=== PATIENT | female | born 1960 ===

== ENCOUNTER 2020-04-14 18:53 | Inpatient (IN) | payer MEDICARE, MEDICAID, SELFPAY ==
[2020-04-14] VITALS (9 sets, daily range): BP systolic 114–138; BP diastolic 61–87; PULSE 78–84; RESP 16–20; TEMP 38.1–38.8; O2SAT 92–98; BMI 35.4
--- NOTE | ~2020-04-14 | XR_ITS ---
EXAMINATION: XR chest 1V portable DATE: 04/14/2020 20:01 INDICATION: Dyspnea, cough, nausea and vomiting TECHNIQUE: frontal view of the chest was obtained. COMPARISON: None FINDINGS: Subtle patchy airspace opacities in the bilateral lower lung zones. No pleural effusion or pneumothor ax. The cardiomediastinal silhouette is normal. Dual lead pacemaker seen with leads projecting over t he expected locations of the right atrium and right ventricle. Old healed proximal left humeral fract ure deformity. IMPRESSION: 1. Mild opacities in the bilateral lower lung zones which could represent pneumonia, pulmonary edema and/or atelectasis. Reviewed, dictated and finalized at location A. T AID OFFICER IMPRESSION: 1. Mild opacities in the bilateral lower lung zones which could represent pneum onia, pulmonary edema and/or atelectasis.
--- NOTE | 2020-04-14 19:27 | ECG_ITS ---
Measurements Intervals [place] Rate: 77 P: 63 WA: 197 QRS: 32 QRSD: 93 T: 60 QT: 373 QTc: 424 Interpretive Statements SINUS RHYTHM BORDERLINE ST-T WAVE ABNORMALITY- DIFFUSE LEADS BASELINE ARTIFACT- II, III, AVR, AVL, AVF, V1 BORDERLINE ECG Electronically Signed On 04-15-2020 7:11:02 RESIDENTIAL PROPERTY MANAGER by Jared Noe D.O.
[2020-04-14 19:54] LABS: Base Excess ABG -1.4 mmol/L (0-2); HCO3 ABG 23.1 mmol/L (23-29); Oxygen Content ABG 17.3 %vol (16.0-22.0); Oxygen Saturation ABG 93.1 % (95-97); Oxyhemoglobin 92.5 % (94-100); PCO2 ABG 38.3 mmHg (35-45); PO2 ABG 61.7 mmHg (80-90); Total Hemoglobin 13.3 g/dL
[2020-04-14] MEDS: SODIUM CHLORIDE 0.9% IV 1,000 ML 999 ML IV CONT (19:58)
[2020-04-14 20:00] LABS: Basophils Absolute Auto 0.01 K/mm3 (0.00-0.10); Basophils Percent Auto 0.2 % (0.0-1.0); Eosinophils Absolute Auto 0.01 K/mm3 (0.02-0.50); Eosinophils Percent Auto 0.2 % (1.0-6.0); Hematocrit 37.8 % (35.0-49.0); Hemoglobin 12.5 g/dL (12.0-15.0); Immature Granulocyte Absolute 0.02 K/mm3 (0.00-0.00); Immature Granulocyte Percent A 0.4 % (0.0-0.0); Lymphocytes Absolute Auto 1.08 K/mm3 (1.10-4.50); Lymphocytes Percent Auto 24.1 % (18.0-42.0); Mean Corpuscular HGB Conc 33.1 g/dL (32.0-36.0); Mean Corpuscular Hemoglobin 31.6 pg (27.0-31.0); Mean Corpuscular Volume 95.7 fL (78.0-102.0); Mean Platelet Volume 8.8 fl (9.2-11.8); Monocytes Absolute Auto 0.64 K/mm3 (0.10-0.90); Monocytes Percent Auto 14.3 % (2.0-11.0); Neutrophils Absolute Auto 2.7 K/mm3 (1.7-7.2); Neutrophils Percent Auto 60.8 % (50.0-70.0); Platelet Count Result 253 K/mm3 (150-420); Red Blood Count 3.95 M/mm3 (4.20-5.40); Red Cell Distribution Width 12.8 % (11.6-14.4); White Blood Count 4.5 K/mm3 (4.8-10.8)
[2020-04-14 20:06] LABS: Device ROOM AIR; Modified Allen's Test Pass; Site Drawn LEFT RADIAL
[2020-04-14 20:09] LABS: Alanine Aminotransferase 25 U/L (14-59); Albumin Level 3.2 g/dL (3.4-5.0); Alkaline Phosphatase 82 U/L (46-116); Anion Gap 11 mmol/L (8-16); Aspartate Amino Transferase 19 U/L (15-37); Bilirubin,Total 0.2 mg/dL (0.00-1.00); Blood Urea Nitrogen 20 mg/dL (7-18); Calcium 8.7 mg/dL (8.5-10.1); Carbon Dioxide 26 mmol/L (21-32); Chloride 99 mmol/L (98-108); Estimated CRCL calculation 83 ml/min; Estimated Glomerular Filt Rate > 60; Glucose 220 mg/dL (70-99); Osmolality Calculated 291 mOsm/kg (285-295); Potassium 3.6 mmol/L (3.5-5.1); Sodium 136 mmol/L (136-145); Total Protein 7.2 g/dL (6.4-8.2)
[2020-04-14 20:16] LABS: BNP 10.5 pg/mL (0-100); D Dimer 0.47 mg/L (0.19-0.50); INR 0.9; Partial Thromboplastin Time 26.5 SEC (23.90-30.70); Prothrombin Time 10.4 Seconds (9.50-12.10)
[2020-04-14 20:20] LABS: Influenza Control Valid (Valid); SARS-CoV-2 Ag Positive (Negative)
[2020-04-14 20:23] LABS: Magnesium 1.8 mg/dL (1.8-2.4)
[2020-04-14] MEDS: ALBUTEROL SULFATE (*SP) INHALER 2 PUFF INHALATION (20:34)
--- NOTE | 2020-04-14 20:41 | ED.FEVER ---
HPI - Fever General Chief Complaint: Fever Stated Complaint: AMB Source: patient and family Mode of arrival: EMS Limitations: no limitations History of Present Illness HPI Narrative: This is a 59-year-old female that presents with some shortness of breath cough with nausea vomiting and diarrhea patient presents via EMS and with a temperature of 101?. The patient comes from [facility] and has a history of bipolar, posttraumatic stress disorder, history of hypertension, diabetes insulin dependent with history of asthma. Patient denies any chest pain although she is having some shortness of breath and sats around 92% on room air. Patient has been having some nausea vomiting cough is mildly productive. MD elicited complaint: fever Pertinent past history: diabetes Onset (ago): day(s) Context: sick contacts Relieving factors: nothing Associated symptoms: chills, headache, nasal congestion, cough, shortness of breath, abdominal pain, nausea, vomiting and diarrhea Related Data Home Medications Medication Instructions Recorded Confirmed Lactobacillus acidophilus 2 tablet PO BID 04/14/20 04/14/20 [Acidophilus] albuterol sulfate [Ventolin HFA] 1 - 2 puff INHALATION QID 04/14/20 04/14/20 azelastine 1 - 2 spray INTRANASAL BID 04/14/20 04/14/20 bisacodyl 10 mg ND DAILY PRN 04/14/20 04/14/20 budesonide-formoterol 1 puff INHALATION BID 04/14/20 04/14/20 calcium carbonate [Calcium 600] 600 mg PO DAILY 04/14/20 04/14/20 cetirizine 10 mg PO DAILY 04/14/20 04/14/20 cholecalciferol (vitamin D3) 25 mcg PO DAILY 04/14/20 04/14/20 [Vitamin D3] clonazepam 0.5 mg PO TID PRN 04/14/20 04/14/20 clopidogrel 75 mg PO DAILY 04/14/20 04/14/20 docusate calcium 100 mg PO BID 04/14/20 04/14/20 duloxetine 20 mg PO BID 04/14/20 04/14/20 duloxetine 60 mg PO HS 04/14/20 04/14/20 esomeprazole magnesium 40 mg PO DAILY 04/14/20 04/14/20 ezetimibe 10 mg PO DAILY 04/14/20 04/14/20 famotidine 40 mg PO DAILY 04/14/20 04/14/20 gabapentin 300 mg PO TID 04/14/20 04/14/20 hydroxyzine HCl 50 mg PO BID 04/14/20 04/14/20 insulin glargine [Lantus Solostar 25 unit SUBCUT HS 04/14/20 04/14/20 U-100 Insulin] insulin lispro [Humalog KwikPen 9 unit SUBCUT AC 04/14/20 04/14/20 Insulin] lidocaine [Aspercreme (lidocaine 1 patch TOPICAL DAILY PRN 04/14/20 04/14/20 HCl)] metoprolol tartrate 25 mg PO DAILY 04/14/20 04/14/20 mometasone 1 spray INTRANASAL DAILY 04/14/20 04/14/20 montelukast 10 mg PO DAILY 04/14/20 04/14/20 ondansetron HCl 4 mg PO TID PRN 04/14/20 04/14/20 polyethylene glycol 3350 [Miralax] 17 g PO DAILY 04/14/20 04/14/20 ropinirole 0.25 mg PO HS 04/14/20 04/14/20 sumatriptan succinate 50 mg PO ONCE PRN 04/14/20 04/14/20 tramadol 50 mg PO TID PRN 04/14/20 04/14/20 trazodone 150 mg PO HS PRN 04/14/20 04/14/20 vilazodone [Viibryd] 40 mg PO DAILY 04/14/20 04/14/20 Allergies Allergy/AdvReac Type Severity Reaction Status Date / Time doxycycline Allergy Intermediate Nausea Verified 04/14/20 20:48 clindamycin Allergy Mild Nausea Verified 04/14/20 20:48 amitriptyline Allergy Unknown Verified 04/14/20 20:48 pregabalin Allergy Unknown Verified 04/14/20 20:48 amoxicillin [From Augmentin] AdvReac Nausea Verified 04/14/20 20:48 clavulanic acid AdvReac Nausea Verified 04/14/20 20:48 [From Augmentin] metformin AdvReac Unknown Verified 04/14/20 20:48 Review of Systems Review of Systems: All systems reviewed & are unremarkable except as noted in HPI and below PMFSH Past Medical History Medical History Asthma Diabetes mellitus HTN (hypertension) Social History Social History Smoking status: Former smoker Smoking end date: 05/13/10 Alcohol intake: never Gender identity (if verbalized by the patient): Female Exam Const: General: no acute distress Orientation/consciousness: patient oriented x3 HENMT: Head: normal to inspection Eyes: Co
[2020-04-14] MEDS: ACETAMINOPHEN 500 MG TABLET 1000 MG PO (21:08)
--- NOTE | 2020-04-14 22:05 | ADMGEN ---
This patient, Alivia Lombardi, was admitted to 2nd Floor Room 210-2. Patient/family oriented to hospital policies and general routines including ID bracelet, bed and alarms, visiting hours, pain management, procedures, bathroom and other care routines, personal items, smoking policy, room service/diet, and visiting hours. Information on how to activate the Rapid Response Team has been discussed. Patient/Family are encouraged to report perceived risks to care and to ask questions if they do not understand what they are told or what they should do.
[2020-04-14] MEDS: SODIUM CHLORIDE 0.9% IV 1,000 ML 100 ML IV CONT (22:59)
[2020-04-14] MEDS: clonazePAM (*CRX) 0.5 MG TABLET PO (23:00)
[2020-04-14 23:54] LABS: Alanine Aminotransferase 23 U/L (14-59)
[2020-04-15] VITALS (10 sets, daily range): BP systolic 110–183; BP diastolic 67–91; PULSE 69–81; RESP 18–22; TEMP 36.5–38.1; O2SAT 92–97
[2020-04-15] MEDS: REMDESIVIR 100 MG/NS 250 ML 100 MG/250 ML BAG 250 MG IVPB ×2 (00:13→11:25)
[2020-04-15] MEDS: ACETAMINOPHEN 325 MG TABLET 650 MG PO (01:07)
[2020-04-15 02:12] LABS: Add Urine Microscopic? NO; Appearance Urine Clear (Clear); Bilirubin Urine Negative (Negative); Blood Urine Negative (Negative); Color Urine Yellow (Yellow); Glucose Urine UA Negative (Negative); Ketones Urine Negative (Negative); Leukocyte Esterase Ur Negative LEU/UL (Negative); Nitrate Urine Negative (Negative); Protein Urine Negative (Negative); Specific Grav Ur 1.015 (1.010-1.020); Urobilinogen Urine 0.2 mg/dL (0.2-1.0)
[2020-04-15 06:08] LABS: Hematocrit 34.5 % (35.0-49.0); Hemoglobin 11.3 g/dL (12.0-15.0); Mean Corpuscular HGB Conc 32.8 g/dL (32.0-36.0); Mean Corpuscular Hemoglobin 31.6 pg (27.0-31.0); Mean Corpuscular Volume 96.4 fL (78.0-102.0); Mean Platelet Volume 8.8 fl (9.2-11.8); Platelet Count Result 199 K/mm3 (150-420); Red Blood Count 3.58 M/mm3 (4.20-5.40); Red Cell Distribution Width 12.8 % (11.6-14.4)
[2020-04-15 06:27] LABS: Alanine Aminotransferase 23 U/L (14-59); Albumin Level 2.7 g/dL (3.4-5.0); Alkaline Phosphatase 70 U/L (46-116); Anion Gap 10 mmol/L (8-16); Aspartate Amino Transferase 15 U/L (15-37); Bilirubin,Total 0.2 mg/dL (0.00-1.00); Blood Urea Nitrogen 12 mg/dL (7-18); Calcium 7.7 mg/dL (8.5-10.1); Carbon Dioxide 25 mmol/L (21-32); Chloride 104 mmol/L (98-108); Estimated CRCL calculation 102 ml/min; Estimated Glomerular Filt Rate > 60; Glucose 204 mg/dL (70-99); Osmolality Calculated 293 mOsm/kg (285-295); Potassium 3.2 mmol/L (3.5-5.1); Sodium 139 mmol/L (136-145); Total Protein 6.1 g/dL (6.4-8.2)
[2020-04-15 06:49] LABS: Band Neutrophils Percent 0 % (0-6); Lymphocytes Absolute Manual 0.66 K/mm3 (1.1-4.5); Lymphocytes Percent Manual 22 % (18-44); Monocytes Percent Manual 10 % (3-9); Neutrophils Absolute Manual 2.04 K/mm3 (1.7-7.2); Neutrophils Percent Manual 68 % (46-73); Total Cells Counted 100
[2020-04-15 06:50] LABS: Platelet Estimate Adequate (Adequate)
[2020-04-15 08:03] LABS: Glucose Point of Care 201 (65-105)
[2020-04-15] MEDS: SODIUM CHLORIDE 0.9% IV 1,000 ML 100 ML IV CONT ×2 (08:54→20:35)
[2020-04-15] MEDS: LIDOCAINE 5% PATCH 1 PATCH TRANSDERM (08:55)
[2020-04-15] MEDS: FLUTICASONE PROPIONATE 0.05% NA SPR 16 GM BTL (*BKC) 1 SPRAY NASAL ×2 (08:55→20:49)
[2020-04-15] MEDS: polyethylene glycoL 3350 17 GM POWD.PACK PO (08:56)
[2020-04-15] MEDS: SACCHAROMYCES BOULARDII 250 MG CAPSULE PO ×2 (08:56→17:05)
[2020-04-15] MEDS: DEXAMETHASONE SOD PHOS INJ 4 MG/ML VIAL 6 MG IV PUSH (08:56)
[2020-04-15] MEDS: KCL 20 MEQ/SW 100 ML 100 ML 50 MEQ IVPB (08:56)
[2020-04-15] MEDS: hydrOXYzine HCL 25 MG TABLET 50 MG PO ×2 (08:57→16:58)
[2020-04-15] MEDS: DOCUSATE SODIUM 100 MG CAPSULE PO ×2 (08:57→16:58)
[2020-04-15] MEDS: FAMOTIDINE 20 MG TABLET 40 MG PO (08:57)
[2020-04-15] MEDS: CHOLECALCIFEROL 1,000 UNITS TABLET 1000 UNITS PO (08:57)
[2020-04-15] MEDS: CLOPIDOGREL BISULFATE 75 MG TABLET PO (08:58)
[2020-04-15] MEDS: EZETIMIBE 10 MG TABLET PO (08:58)
[2020-04-15] MEDS: METOPROLOL TARTRATE 25 MG TABLET PO (08:58)
[2020-04-15] MEDS: CALCIUM CARBONATE (OSCAL) 500 MG TABLET PO (08:58)
[2020-04-15] MEDS: GABAPENTIN 300 MG CAPSULE PO ×3 (08:58→16:58)
[2020-04-15] MEDS: MONTELUKAST SODIUM 10 MG TABLET PO (08:58)
[2020-04-15] MEDS: traMADol HCL (*CRX) 50 MG TABLET PO ×2 (08:58→16:58)
[2020-04-15] MEDS: PANTOPRAZOLE 40 MG TABLET PO (08:59)
[2020-04-15] MEDS: DULoxetine HCL 20 MG CAPSULE.DR PO ×2 (08:59→16:58)
[2020-04-15] MEDS: BUDESONIDE/FORMOTEROL (*SP) 160-4.5 MCG 6 GM INH 1 PUFF INHALATION ×2 (08:59→17:04)
[2020-04-15] MEDS: LORATADINE 10 MG TABLET PO (08:59)
--- NOTE | 2020-04-15 09:04 | PM.IMHP ---
H&P: HPI History of Present Illness Date/Time: 04/15/20 09:04 Chief complaint: pneumonia covid 19 Narrative: Alivia Lombardi is a 59 year old female that presented to our ED with complaints shortness of breath, cough, nausea vomiting, and febrile. Patient has a past medical history of asthma, diabetes, hypertension, bipolar and PTSD. According to patient a couple days ago she developed diarrhea. She noted that yesterday she developed chills with more diarrhea, a cough, shortness of breath, nasal congestion and a fever. Patient notes that he previously resided at [facility] in [place] she was then transferred to [facility] and she is currently at [facility]. This assessment patient still complains of chills, nasal congestion with a cough with occasional diarrhea ,her shortness of breath and nausea and vomiting has resolved. The patient denies CP, palpitation, extremity numbness, lightheadedness, dizziness, and constipation.. Review of Systems Review of Systems: All systems reviewed & are unremarkable except as noted in HPI and below (10 point system review) [facility] Past Medical History Medical History Asthma Diabetes mellitus HTN (hypertension) Social History Social History Smoking status: Former smoker Smoking end date: 05/13/10 Alcohol intake: never Substance use: never Gender identity (if verbalized by the patient): Female Sexual Orientation (if Verbalized by the Patient): Straight or Heterosexual Spiritual care concerns: No Meds Home Medications and Allergies Home Medications Medication Instructions Recorded Confirmed Type Lactobacillus acidophilus 2 tablet PO BID 04/14/20 04/14/20 History [Acidophilus] albuterol sulfate [Ventolin HFA] 1 - 2 puff INHALATION QID 04/14/20 04/14/20 History azelastine 1 - 2 spray INTRANASAL BID 04/14/20 04/14/20 History bisacodyl 10 mg MN DAILY PRN 04/14/20 04/14/20 History budesonide-formoterol 1 puff INHALATION BID 04/14/20 04/14/20 History calcium carbonate [Calcium 600] 600 mg PO DAILY 04/14/20 04/14/20 History cetirizine 10 mg PO DAILY 04/14/20 04/14/20 History cholecalciferol (vitamin D3) 25 mcg PO DAILY 04/14/20 04/14/20 History [Vitamin D3] clonazepam 0.5 mg PO TID PRN 04/14/20 04/14/20 History clopidogrel 75 mg PO DAILY 04/14/20 04/14/20 History docusate calcium 100 mg PO BID 04/14/20 04/14/20 History duloxetine 20 mg PO BID 04/14/20 04/14/20 History duloxetine 60 mg PO HS 04/14/20 04/14/20 History esomeprazole magnesium 40 mg PO DAILY 04/14/20 04/14/20 History ezetimibe 10 mg PO DAILY 04/14/20 04/14/20 History famotidine 40 mg PO DAILY 04/14/20 04/14/20 History gabapentin 300 mg PO TID 04/14/20 04/14/20 History hydroxyzine HCl 50 mg PO BID 04/14/20 04/14/20 History insulin glargine [Lantus Solostar 25 unit SUBCUT HS 04/14/20 04/14/20 History U-100 Insulin] insulin lispro [Humalog KwikPen 9 unit SUBCUT AC 04/14/20 04/14/20 History Insulin] lidocaine [Aspercreme (lidocaine 1 patch TOPICAL DAILY PRN 04/14/20 04/14/20 History HCl)] metoprolol tartrate 25 mg PO DAILY 04/14/20 04/14/20 History mometasone 1 spray INTRANASAL DAILY 04/14/20 04/14/20 History montelukast 10 mg PO DAILY 04/14/20 04/14/20 History ondansetron HCl 4 mg PO TID PRN 04/14/20 04/14/20 History polyethylene glycol 3350 [Miralax] 17 g PO DAILY 04/14/20 04/14/20 History ropinirole 0.25 mg PO HS 04/14/20 04/14/20 History sumatriptan succinate 50 mg PO ONCE PRN 04/14/20 04/14/20 History tramadol 50 mg PO TID PRN 04/14/20 04/14/20 History trazodone 150 mg PO HS PRN 04/14/20 04/14/20 History vilazodone [Viibryd] 40 mg PO DAILY 04/14/20 04/14/20 History Allergies Allergy/AdvReac Type Severity Reaction Status Date / Time doxycycline Allergy Intermediate Nausea Verified 04/14/20 20:48 clindamycin Allergy Mild Nausea Verified
[2020-04-15 09:52] LABS: CRP 7.9 mg/dL (0.0-0.9)
[2020-04-15 10:01] LABS: Lactic Acid Reflex 2.1 mmol/L (0.4-2.0)
[2020-04-15] MEDS: SUMAtriptan SUCCINATE 25 MG TABLET 50 MG PO (11:27)
[2020-04-15 11:42] LABS: Glucose Point of Care 242 (65-105)
[2020-04-15 12:45] LABS: Reflex Lactic Acid Yes or No Add Lactic
[2020-04-15 13:21] LABS: Lactic Acid 0.8 mmol/L (0.4-2.0)
[2020-04-15 16:23] LABS: Glucose Point of Care 290 (65-105)
[2020-04-15] MEDS: rOPINIRole HCL 0.5 MG TABLET 0.25 MG PO (20:37)
[2020-04-15] MEDS: DULoxetine HCL 30 MG CAPSULE.DR 60 MG PO (20:38)
[2020-04-15] MEDS: INSULIN GLARGINE (*BKC) 100 UNITS/ML 25 UNITS SUB-Q (21:15)
[2020-04-15] MEDS: traZODone HCL 50 MG TABLET 150 MG PO (21:17)
[2020-04-15 21:23] LABS: Glucose Point of Care 263 (65-105)
--- NOTE | 2020-04-16 00:09 | PC.NURSE ---
2300 Pt. assisted c SBA to bathroom, pt. voided and back to bed. Pt. noted to have increased SOB when up walking and c/o feeling more SOB and some pain in her chest c deep resp. Pt. placed back on her O2 at 3L NC and SPO2 increased to 95%.
[2020-04-16] MEDS: traMADol HCL (*CRX) 50 MG TABLET PO ×3 (02:53→19:55)
--- NOTE | 2020-04-16 03:04 | PC.NURSE ---
Pt. calling for assistance to BR, pt. c/o feeling SOB p walking to BR and feeling dizzy at this time. VS checked and noted WNL. Pt. assisted back to bed and wanting something for pain and reports pain in her legs and has H/A. Pt. given Tramadol and lights turned out. Encouraged pt. to rest and get sleep.
[2020-04-16 03:07] VITALS: BP 137/68; PULSE 73; RESP 20; TEMP 36.2; O2SAT 95
[2020-04-16 05:49] LABS: Hematocrit 33.3 % (35.0-49.0); Hemoglobin 11.2 g/dL (12.0-15.0); Mean Corpuscular HGB Conc 33.6 g/dL (32.0-36.0); Mean Corpuscular Hemoglobin 31.4 pg (27.0-31.0); Mean Corpuscular Volume 93.3 fL (78.0-102.0); Mean Platelet Volume 8.8 fl (9.2-11.8); Platelet Count Result 209 K/mm3 (150-420); Red Blood Count 3.57 M/mm3 (4.20-5.40); Red Cell Distribution Width 12.2 % (11.6-14.4); White Blood Count 2.9 K/mm3 (4.8-10.8)
[2020-04-16 06:05] LABS: Alanine Aminotransferase 20 U/L (14-59); Albumin Level 2.7 g/dL (3.4-5.0); Alkaline Phosphatase 67 U/L (46-116); Anion Gap 9 mmol/L (8-16); Aspartate Amino Transferase 12 U/L (15-37); Bilirubin,Total 0.2 mg/dL (0.00-1.00); Blood Urea Nitrogen 8 mg/dL (7-18); Calcium 8.1 mg/dL (8.5-10.1); Carbon Dioxide 25 mmol/L (21-32); Chloride 106 mmol/L (98-108); Estimated CRCL calculation 123 ml/min; Estimated Glomerular Filt Rate > 60; Glucose 178 mg/dL (70-99); Osmolality Calculated 292 mOsm/kg (285-295); Potassium 3.4 mmol/L (3.5-5.1); Sodium 140 mmol/L (136-145); Total Protein 6.4 g/dL (6.4-8.2)
[2020-04-16] MEDS: SODIUM CHLORIDE 0.9% IV 1,000 ML 100 ML IV CONT ×2 (06:10→17:18)
[2020-04-16 08:00] VITALS: BP 154/62; PULSE 71; RESP 18; TEMP 36.6; O2SAT 96
--- NOTE | 2020-04-16 09:06 | P.PN_ITS ---
Progress Note: A&P Assessment and Plan (1) Community acquired pneumonia: Qualifiers: Laterality: unspecified laterality Qualified Code(s): J18.9 - Pneumonia, unspecified organism Code(s): J18.9 - Pneumonia, unspecified organism Status: Acute Assessment and Plan: * Chest x-ray indicate possible pneumonia * Continue azithromycin and Rocephin day 1 * Continue Tessalon Perles, guaifenesin, Flonase, Claritin * Nebulizers * Zofran for the nausea * Imodium for the diarrhea (2) COVID-19: Code(s): U07.1 - COVID-19 Status: Acute Assessment and Plan: * Tested + 04/14/2020 * Developed symptoms 04/14/2020 * Continue remdesivir and dexamethasone * 04/27/2020 quarantine complete (3) Asthma: Code(s): J45.909 - Unspecified asthma, uncomplicated Status: Acute Assessment and Plan: * Continue nebulizers and inhaler * Give supplementary oxygen as needed (4) HTN (hypertension): Code(s): I10 - Essential (primary) hypertension Status: Acute Assessment and Plan: * Blood pressures stable * Continue metoprolol 25 mg daily * Will monitor and adjust as needed * Vital signs as ordered (5) Diabetes mellitus: Code(s): E11.9 - Type 2 diabetes mellitus without complications Status: Acute Assessment and Plan: * Blood sugar stable * Will continue Lantus 25 units at bedtime with sliding scale, Accu-Cheks and hypoglycemic protocol (6) Bipolar 1 disorder: Code(s): F31.9 - Bipolar disorder, unspecified Status: Acute Assessment and Plan: * Continue home medication, Cymbalta, hydroxyzine, vilazodone (7) Nausea vomiting and diarrhea: Code(s): R11.2 - Nausea with vomiting, unspecified; R19.7 - Diarrhea, unspecified Status: Acute Assessment and Plan: * Resolved * Possibly secondary to pneumonia versus Covid * Continue Zofran and Imodium (8) Leukocytopenia: Code(s): D72.819 - Decreased white blood cell count, unspecified Status: Acute Assessment and Plan: * Possibly secondary to psychotropic medication versus viral infection * Will continue to monitor Review of Systems Review of Systems: All systems reviewed & are unremarkable except as noted in HPI and below (10 point system review) Exam Narrative: Exam Narrative: GENERAL: This is a well-nourished in no apparent distress. HEAD: normocephalic, atraumatic. EYES: PERRL. Sclera clear/white. Vision is grossly intact. EARS: External ears normal, auditory canals clear and without drainage, TMs normal without perforation. Hearing grossly intact. NOSE: External nose normal with no obvious nasal discharge, nares without redness, no rhinorrhea. THROAT: Mucous membranes moist, posterior pharynx clear. NECK: Neck supple, non-tender without lymphadenopathy, masses or thyromegaly. CARDIOVASCULAR: Regular rate and rhythm without murmurs, gallops, or rubs. RESPIRATORY: Lung sounds diminished GASTROINTESTINAL: Abdomen soft, non-tender, nondistended. Bowel sounds are active. No hepato-splenomegaly, or palpable masses. No guarding. SKIN: warm, intact with no suspicious lesions or rash, good texture and turgor. NEURO: awake, alert, and oriented to person, place and time. There were no obvious focal neurologic abnormalities. Steady gait EXTREMITIES: Normal range of motion. No edema. No calf tenderness. Negative Homans sign bilaterally. BACK: Nontender without deformity or crepitance. No flank tenderness. Objective Data Vital Signs Vital
--- NOTE | 2020-04-16 09:06 | WPDPN ---
Progress Note: A&P Assessment and Plan (1) Community acquired pneumonia: Qualifiers: Laterality: unspecified laterality Qualified Code(s): J18.9 - Pneumonia, unspecified organism Code(s): J18.9 - Pneumonia, unspecified organism Status: Acute Assessment and Plan: Chest x-ray indicate possible pneumonia Continue azithromycin and Rocephin day 1 Continue Tessalon Perles, guaifenesin, Flonase, Claritin Nebulizers Zofran for the nausea Imodium for the diarrhea (2) COVID-19: Code(s): U07.1 - COVID-19 Status: Acute Assessment and Plan: Tested + 04/14/2020 Developed symptoms 04/14/2020 Continue remdesivir and dexamethasone 04/27/2020 quarantine complete (3) Asthma: Code(s): J45.909 - Unspecified asthma, uncomplicated Status: Acute Assessment and Plan: Continue nebulizers and inhaler Give supplementary oxygen as needed (4) HTN (hypertension): Code(s): I10 - Essential (primary) hypertension Status: Acute Assessment and Plan: Blood pressures stable Continue metoprolol 25 mg daily Will monitor and adjust as needed Vital signs as ordered (5) Diabetes mellitus: Code(s): E11.9 - Type 2 diabetes mellitus without complications Status: Acute Assessment and Plan: Blood sugar stable Will continue Lantus 25 units at bedtime with sliding scale, Accu-Cheks and hypoglycemic protocol (6) Bipolar 1 disorder: Code(s): F31.9 - Bipolar disorder, unspecified Status: Acute Assessment and Plan: Continue home medication, Cymbalta, hydroxyzine, vilazodone (7) Nausea vomiting and diarrhea: Code(s): R11.2 - Nausea with vomiting, unspecified; R19.7 - Diarrhea, unspecified Status: Acute Assessment and Plan: Resolved Possibly secondary to pneumonia versus Covid Continue Zofran and Imodium (8) Leukocytopenia: Code(s): D72.819 - Decreased white blood cell count, unspecified Status: Acute Assessment and Plan: Possibly secondary to psychotropic medication versus viral infection Will continue to monitor Review of Systems Review of Systems: All systems reviewed & are unremarkable except as noted in HPI and below (10 point system review) Exam Narrative: Exam Narrative: GENERAL: This is a well-nourished in no apparent distress. HEAD: normocephalic, atraumatic. EYES: PERRL. Sclera clear/white. Vision is grossly intact. EARS: External ears normal, auditory canals clear and without drainage, TMs normal without perforation. Hearing grossly intact. NOSE: External nose normal with no obvious nasal discharge, nares without redness, no rhinorrhea. THROAT: Mucous membranes moist, posterior pharynx clear. NECK: Neck supple, non-tender without lymphadenopathy, masses or thyromegaly. CARDIOVASCULAR: Regular rate and rhythm without murmurs, gallops, or rubs. RESPIRATORY: Lung sounds diminished GASTROINTESTINAL: Abdomen soft, non-tender, nondistended. Bowel sounds are active. No hepato-splenomegaly, or palpable masses. No guarding. SKIN: warm, intact with no suspicious lesions or rash, good texture and turgor. NEURO: awake, alert, and oriented to person, place and time. There were no obvious focal neurologic abnormalities. Steady gait EXTREMITIES: Normal range of motion. No edema. No calf tenderness. Negative Homans sign bilaterally. BACK: Nontender without deformity or crepitance. No flank tenderness. Objective Data Vital Signs Vital Signs: Vital Signs - 24 hr 04/15/20 15:36 04/15/20 20:52 04/15/20 22:58 Temperature 98.9 F 97.7 F Pulse Rate 81 76 72 Respiratory Rate 18 20 22 H Blood Pressure 183/91 H 157/67 H Pulse Oximetry 92 97 95 04/15/20 23:00 04/16/20 03:07 04/16/20 08:00 Temperature 97.1 F L 97.9 F Pulse Rate 73 71 Respiratory Rate 20 18 Blood Pressure 137/68 154/62 H Pulse Oximetry 95 95 96 Intake/Output Intake/Output: Intake & Output
[2020-04-16] MEDS: SACCHAROMYCES BOULARDII 250 MG CAPSULE PO ×2 (09:30→17:15)
[2020-04-16] MEDS: hydrOXYzine HCL 25 MG TABLET 50 MG PO ×2 (09:30→17:14)
[2020-04-16] MEDS: CALCIUM CARBONATE (OSCAL) 500 MG TABLET PO (09:31)
[2020-04-16] MEDS: LORATADINE 10 MG TABLET PO (09:31)
[2020-04-16] MEDS: DEXAMETHASONE SOD PHOS INJ 4 MG/ML VIAL 6 MG IV PUSH (09:31)
[2020-04-16] MEDS: DOCUSATE SODIUM 100 MG CAPSULE PO ×2 (09:31→17:14)
[2020-04-16] MEDS: DULoxetine HCL 20 MG CAPSULE.DR PO ×2 (09:31→17:14)
[2020-04-16] MEDS: FAMOTIDINE 20 MG TABLET 40 MG PO (09:31)
[2020-04-16] MEDS: CHOLECALCIFEROL 1,000 UNITS TABLET 1000 UNITS PO (09:31)
[2020-04-16 09:32] VITALS: PULSE 71
[2020-04-16] MEDS: MONTELUKAST SODIUM 10 MG TABLET PO (09:32)
[2020-04-16] MEDS: PANTOPRAZOLE 40 MG TABLET PO (09:32)
[2020-04-16] MEDS: METOPROLOL TARTRATE 25 MG TABLET PO (09:32)
[2020-04-16] MEDS: EZETIMIBE 10 MG TABLET PO (09:32)
[2020-04-16] MEDS: BUDESONIDE/FORMOTEROL (*SP) 160-4.5 MCG 6 GM INH 1 PUFF INHALATION ×2 (09:33→17:14)
[2020-04-16] MEDS: LIDOCAINE 5% PATCH 1 PATCH TRANSDERM (09:33)
[2020-04-16] MEDS: CLOPIDOGREL BISULFATE 75 MG TABLET PO (09:33)
[2020-04-16] MEDS: FLUTICASONE PROPIONATE 0.05% NA SPR 16 GM BTL (*BKC) 1 SPRAY NASAL ×2 (09:33→21:03)
[2020-04-16] MEDS: POTASSIUM CHLORIDE 20 MEQ PACKET (FOR LIQUID) 40 MEQ FEED TUBE (09:33)
[2020-04-16] MEDS: REMDESIVIR 100 MG/NS 250 ML 100 MG/250 ML BAG 250 MG IVPB (09:34)
[2020-04-16 09:56] LABS: Band Neutrophils Percent 36 % (0-6); Eosinophils Percent Manual 0 % (1-6); Lymphocytes Absolute Manual 0.34 K/mm3 (1.1-4.5); Lymphocytes Percent Manual 12 % (18-44); Monocytes Percent Manual 0 % (3-9); Neutrophils Absolute Manual 2.55 K/mm3 (1.7-7.2); Neutrophils Percent Manual 52 % (46-73); Total Cells Counted 100
[2020-04-16 09:57] LABS: Platelet Estimate Adequate (Adequate)
[2020-04-16] MEDS: GABAPENTIN 300 MG CAPSULE 900 MG PO ×3 (10:04→19:57)
[2020-04-16 15:00] VITALS: BP 165/81; PULSE 63; RESP 18; TEMP 36.3; O2SAT 95
[2020-04-16 16:24] LABS: Glucose Point of Care 232 (65-105)
[2020-04-16 16:31] LABS: Glucose Point of Care 292 (65-105)
--- NOTE | 2020-04-16 17:33 | PC.NURSE ---
Patient states that she takes evening gabapentin dose close to 1900/2000. Charge nurse notified of patient wanting times changed.
[2020-04-16] MEDS: clonazePAM (*CRX) 0.5 MG TABLET PO (19:55)
[2020-04-16 20:00] VITALS: PULSE 85; RESP 20; O2SAT 96
--- NOTE | 2020-04-16 20:09 | PC.NURSE ---
Upon assessment by this RN, entering pt. room, pt. reports feeling very anxious and having panic/anxiety attack due to her meds being off schedule. pt. given Tramadol and Clonazepam per request for c/o pain and anxiety. Pt. encouraged to relax and deep breath. Pt. sitting bedside and writing notes about her sxs and how she is feeling. Discussed relaxation techniques and ways to improve feelings. Pt. verbalized understanding. Call lizz in reach, VSS.
[2020-04-16] MEDS: DULoxetine HCL 30 MG CAPSULE.DR 60 MG PO (21:02)
[2020-04-16] MEDS: rOPINIRole HCL 0.5 MG TABLET 0.25 MG PO (21:03)
[2020-04-16] MEDS: INSULIN GLARGINE (*BKC) 100 UNITS/ML 25 UNITS SUB-Q (21:10)
[2020-04-16] MEDS: traZODone HCL 50 MG TABLET 150 MG PO (21:34)
[2020-04-16 21:42] LABS: Glucose Point of Care 292 (65-105)
[2020-04-16 23:52] VITALS: BP 158/82; PULSE 73; RESP 18; TEMP 36.3; O2SAT 89
--- NOTE | 2020-04-16 23:53 | PC.NURSE ---
Patient sleeping when nurse entered room. Woke when nurse called her name. SR up x2. IV insertion site clean, dry, intact, no redness, drainage observed. IV fluids infusing without difficulty. Call light and belongings are within reach.
--- NOTE | 2020-04-17 01:51 | PC.NURSE ---
Patient up to commode with standby assist. Urinated 800 ml of clear stephanie urine. Heat in room turned up per patient request. Warm blanket applied. Side rails up x2. Call light and belongings in reach. IV fluids infusing without difficulty. IV insertion site without redness, swelling, drainage. IV dressing clean, dry, intact.
[2020-04-17] MEDS: SODIUM CHLORIDE 0.9% IV 1,000 ML 100 ML IV CONT (03:12)
[2020-04-17 03:21] VITALS: BP 149/80; PULSE 72; RESP 16; TEMP 36.6; O2SAT 93
[2020-04-17 05:59] LABS: Alanine Aminotransferase 23 U/L (14-59)
[2020-04-17 07:45] VITALS: BP 168/83; PULSE 82; RESP 18; TEMP 36.8; O2SAT 96
[2020-04-17 08:10] LABS: Glucose Point of Care 242 (65-105)
[2020-04-17] MEDS: hydrOXYzine HCL 25 MG TABLET 50 MG PO ×2 (09:20→16:55)
[2020-04-17] MEDS: MONTELUKAST SODIUM 10 MG TABLET PO (09:20)
[2020-04-17] MEDS: GABAPENTIN 300 MG CAPSULE 900 MG PO ×3 (09:20→20:06)
[2020-04-17 09:21] VITALS: PULSE 82
[2020-04-17] MEDS: CHOLECALCIFEROL 1,000 UNITS TABLET 1000 UNITS PO (09:21)
[2020-04-17] MEDS: LIDOCAINE 5% PATCH 1 PATCH TRANSDERM (09:21)
[2020-04-17] MEDS: EZETIMIBE 10 MG TABLET PO (09:21)
[2020-04-17] MEDS: LORATADINE 10 MG TABLET PO (09:21)
[2020-04-17] MEDS: PANTOPRAZOLE 40 MG TABLET PO (09:21)
[2020-04-17] MEDS: FAMOTIDINE 20 MG TABLET 40 MG PO (09:21)
[2020-04-17] MEDS: DOCUSATE SODIUM 100 MG CAPSULE PO ×2 (09:21→16:55)
[2020-04-17] MEDS: METOPROLOL TARTRATE 25 MG TABLET PO (09:21)
[2020-04-17] MEDS: DEXAMETHASONE SOD PHOS INJ 4 MG/ML VIAL 6 MG IV PUSH (09:21)
[2020-04-17] MEDS: polyethylene glycoL 3350 17 GM POWD.PACK PO (09:22)
[2020-04-17] MEDS: BUDESONIDE/FORMOTEROL (*SP) 160-4.5 MCG 6 GM INH 1 PUFF INHALATION ×2 (09:22→16:55)
[2020-04-17] MEDS: SACCHAROMYCES BOULARDII 250 MG CAPSULE PO ×2 (09:22→16:56)
[2020-04-17] MEDS: FLUTICASONE PROPIONATE 0.05% NA SPR 16 GM BTL (*BKC) 1 SPRAY NASAL ×2 (09:22→21:58)
[2020-04-17] MEDS: REMDESIVIR 100 MG/NS 250 ML 100 MG/250 ML BAG 250 MG IVPB (09:23)
[2020-04-17] MEDS: DULoxetine HCL 20 MG CAPSULE.DR PO ×2 (09:23→16:55)
[2020-04-17] MEDS: CALCIUM CARBONATE (OSCAL) 500 MG TABLET PO (09:23)
[2020-04-17] MEDS: CLOPIDOGREL BISULFATE 75 MG TABLET PO (09:23)
--- NOTE | 2020-04-17 10:38 | WPDPN ---
Progress Note: A&P Assessment and Plan (1) Community acquired pneumonia: Qualifiers: Laterality: unspecified laterality Qualified Code(s): J18.9 - Pneumonia, unspecified organism Code(s): J18.9 - Pneumonia, unspecified organism Status: Acute Assessment and Plan: Chest x-ray indicate possible pneumonia Continue azithromycin and Rocephin Continue Tessalon Perles, guaifenesin, Flonase, Claritin Nebulizers Zofran for the nausea Imodium for the diarrhea (2) COVID-19: Code(s): U07.1 - COVID-19 Status: Acute Assessment and Plan: Tested + 04/14/2020 Developed symptoms 04/14/2020 Continue remdesivir and dexamethasone 04/27/2020 quarantine complete (3) Asthma: Code(s): J45.909 - Unspecified asthma, uncomplicated Status: Acute Assessment and Plan: Continue nebulizers and inhaler Give supplementary oxygen as needed (4) HTN (hypertension): Code(s): I10 - Essential (primary) hypertension Status: Acute Assessment and Plan: Blood pressures stable Continue metoprolol 25 mg daily Will monitor and adjust as needed Vital signs as ordered (5) Diabetes mellitus: Code(s): E11.9 - Type 2 diabetes mellitus without complications Status: Acute Assessment and Plan: Blood sugar stable Will continue Lantus 25 units at bedtime with sliding scale, Accu-Cheks and hypoglycemic protocol (6) Bipolar 1 disorder: Code(s): F31.9 - Bipolar disorder, unspecified Status: Acute Assessment and Plan: Continue home medication, Cymbalta, hydroxyzine, vilazodone (7) Nausea vomiting and diarrhea: Code(s): R11.2 - Nausea with vomiting, unspecified; R19.7 - Diarrhea, unspecified Status: Acute Assessment and Plan: Resolved Possibly secondary to pneumonia versus Covid Continue Zofran and Imodium (8) Leukocytopenia: Code(s): D72.819 - Decreased white blood cell count, unspecified Status: Acute Assessment and Plan: Possibly secondary to psychotropic medication versus viral infection Will continue to monitor Review of Systems Review of Systems: All systems reviewed & are unremarkable except as noted in HPI and below (10 point system review) Exam Narrative: Exam Narrative: GENERAL: This is a well-nourished in no apparent distress. HEAD: normocephalic, atraumatic. EYES: PERRL. Sclera clear/white. Vision is grossly intact. EARS: External ears normal, auditory canals clear and without drainage, TMs normal without perforation. Hearing grossly intact. NOSE: External nose normal with no obvious nasal discharge, nares without redness, no rhinorrhea. THROAT: Mucous membranes moist, posterior pharynx clear. NECK: Neck supple, non-tender without lymphadenopathy, masses or thyromegaly. CARDIOVASCULAR: Regular rate and rhythm without murmurs, gallops, or rubs. RESPIRATORY: Lung sounds diminished GASTROINTESTINAL: Abdomen soft, non-tender, nondistended. Bowel sounds are active. No hepato-splenomegaly, or palpable masses. No guarding. SKIN: warm, intact with no suspicious lesions or rash, good texture and turgor. NEURO: awake, alert, and oriented to person, place and time. There were no obvious focal neurologic abnormalities. Steady gait EXTREMITIES: Normal range of motion. No edema. No calf tenderness. Negative Homans sign bilaterally. BACK: Nontender without deformity or crepitance. No flank tenderness. Objective Data Vital Signs Vital Signs: Vital Signs - 24 hr 04/16/20 15:00 04/16/20 20:00 04/16/20 23:52 Temperature 97.4 F L 97.4 F L Pulse Rate 63 85 73 Respiratory Rate 18 20 18 Blood Pressure 165/81 H 158/82 H Pulse Oximetry 95 96 89 L 04/17/20 03:21 04/17/20 07:45 04/17/20 09:21 Temperature 97.8 F 98.3 F Pulse Rate 72 82 82 Respiratory Rate 16 18 Blood Pressure 149/80 H 168/83 H Pulse Oximetry 93 96 Intake/Output Intake/Output: Intake & Output
[2020-04-17] MEDS: clonazePAM (*CRX) 0.5 MG TABLET 0.25 MG PO ×2 (11:04→20:08)
[2020-04-17 12:00] LABS: Glucose Point of Care 216 (65-105)
[2020-04-17] MEDS: traMADol HCL (*CRX) 50 MG TABLET PO ×2 (13:39→21:54)
[2020-04-17 15:30] VITALS: BP 180/76; PULSE 71; RESP 18; TEMP 37.2; O2SAT 94
[2020-04-17 16:47] LABS: Glucose Point of Care 302 (65-105)
[2020-04-17] MEDS: rOPINIRole HCL 0.5 MG TABLET 0.25 MG PO (21:53)
[2020-04-17] MEDS: DULoxetine HCL 30 MG CAPSULE.DR 60 MG PO (21:54)
[2020-04-17] MEDS: traZODone HCL 50 MG TABLET 150 MG PO (21:54)
[2020-04-17] MEDS: INSULIN GLARGINE (*BKC) 100 UNITS/ML 25 UNITS SUB-Q (22:00)
[2020-04-17 22:33] LABS: Glucose Point of Care 260 (65-105)
[2020-04-17 23:43] VITALS: BP 170/79; PULSE 71; RESP 18; TEMP 36.3; O2SAT 96
--- NOTE | 2020-04-17 23:45 | PC.NURSE ---
Patient employee relations consultant light requesting to go to bathroom. Amb with SBA, gait steady. Dribbled while walking, patient changed own pull up. Amb back to bed without difficulty. IV insertion site clean, dry, intact. No redness, swelling, drainage. SR up x2, call light and belongings within reach.
--- NOTE | 2020-04-18 02:02 | PC.NURSE ---
Patient resting quietly. Resp even. Able to turn and position self in bed. SR up x2. Call light and belongings within reach. Continues on Droplet Isolation for positive Covid.
[2020-04-18 05:30] LABS: Hematocrit 35.8 % (35.0-49.0); Mean Corpuscular HGB Conc 33.5 g/dL (32.0-36.0); Mean Corpuscular Hemoglobin 31.2 pg (27.0-31.0); Platelet Count Result 270 K/mm3 (150-420); Red Blood Count 3.85 M/mm3 (4.20-5.40); Red Cell Distribution Width 12.6 % (11.6-14.4); White Blood Count 4.8 K/mm3 (4.8-10.8)
[2020-04-18 05:51] LABS: Alanine Aminotransferase 31 U/L (14-59); Albumin Level 2.9 g/dL (3.4-5.0); Alkaline Phosphatase 69 U/L (46-116); Anion Gap 7 mmol/L (8-16); Aspartate Amino Transferase 16 U/L (15-37); Bilirubin,Total 0.2 mg/dL (0.00-1.00); Blood Urea Nitrogen 18 mg/dL (7-18); Calcium 8.9 mg/dL (8.5-10.1); Carbon Dioxide 29 mmol/L (21-32); Chloride 103 mmol/L (98-108); Estimated CRCL calculation 88 ml/min; Estimated Glomerular Filt Rate > 60; Glucose 257 mg/dL (70-99); Osmolality Calculated 298 mOsm/kg (285-295); Potassium 3.6 mmol/L (3.5-5.1); Sodium 139 mmol/L (136-145); Total Protein 6.6 g/dL (6.4-8.2)
[2020-04-18] MEDS: ACETAMINOPHEN 325 MG TABLET 650 MG PO (06:18)
[2020-04-18 08:00] VITALS: BP 162/91; PULSE 74; RESP 18; TEMP 36.4; O2SAT 94
[2020-04-18 08:05] LABS: Glucose Point of Care 158 (65-105)
[2020-04-18] MEDS: FLUTICASONE PROPIONATE 0.05% NA SPR 16 GM BTL (*BKC) 1 SPRAY NASAL ×2 (09:16→20:57)
[2020-04-18] MEDS: BUDESONIDE/FORMOTEROL (*SP) 160-4.5 MCG 6 GM INH 1 PUFF INHALATION ×2 (09:16→16:34)
[2020-04-18] MEDS: SACCHAROMYCES BOULARDII 250 MG CAPSULE PO ×2 (09:16→16:35)
[2020-04-18] MEDS: LIDOCAINE 5% PATCH 1 PATCH TRANSDERM (09:16)
[2020-04-18 09:17] VITALS: PULSE 74
[2020-04-18] MEDS: EZETIMIBE 10 MG TABLET PO (09:17)
[2020-04-18] MEDS: FAMOTIDINE 20 MG TABLET 40 MG PO (09:17)
[2020-04-18] MEDS: CALCIUM CARBONATE (OSCAL) 500 MG TABLET PO (09:17)
[2020-04-18] MEDS: LORATADINE 10 MG TABLET PO (09:17)
[2020-04-18] MEDS: CHOLECALCIFEROL 1,000 UNITS TABLET 1000 UNITS PO (09:17)
[2020-04-18] MEDS: DULoxetine HCL 20 MG CAPSULE.DR PO ×2 (09:17→16:35)
[2020-04-18] MEDS: DOCUSATE SODIUM 100 MG CAPSULE PO ×2 (09:17→16:35)
[2020-04-18] MEDS: PANTOPRAZOLE 40 MG TABLET PO (09:17)
[2020-04-18] MEDS: CLOPIDOGREL BISULFATE 75 MG TABLET PO (09:17)
[2020-04-18] MEDS: MONTELUKAST SODIUM 10 MG TABLET PO (09:17)
[2020-04-18] MEDS: METOPROLOL TARTRATE 25 MG TABLET PO (09:17)
[2020-04-18] MEDS: hydrOXYzine HCL 25 MG TABLET 50 MG PO ×2 (09:17→16:34)
[2020-04-18] MEDS: GABAPENTIN 300 MG CAPSULE 900 MG PO ×3 (09:19→20:40)
[2020-04-18] MEDS: DEXAMETHASONE SOD PHOS INJ 4 MG/ML VIAL 6 MG IV PUSH (09:19)
[2020-04-18] MEDS: REMDESIVIR 100 MG/NS 250 ML 100 MG/250 ML BAG 250 MG IVPB (09:20)
[2020-04-18] MEDS: polyethylene glycoL 3350 17 GM POWD.PACK PO (09:34)
[2020-04-18] MEDS: clonazePAM (*CRX) 0.5 MG TABLET 0.25 MG PO ×3 (09:34→20:26)
[2020-04-18] MEDS: ONDANSETRON INJ 4 MG/2 ML VIAL IV PUSH (12:09)
--- NOTE | 2020-04-18 13:38 | WPDPN ---
Progress Note: A&P Assessment and Plan (1) Community acquired pneumonia: Qualifiers: Laterality: unspecified laterality Qualified Code(s): J18.9 - Pneumonia, unspecified organism Code(s): J18.9 - Pneumonia, unspecified organism Status: Acute Assessment and Plan: Chest x-ray indicate possible pneumonia Continue azithromycin and Rocephin Continue Tessalon Perles, guaifenesin, Flonase, Claritin Nebulizers Zofran for the nausea Imodium for the diarrhea (2) COVID-19: Code(s): U07.1 - COVID-19 Status: Acute Assessment and Plan: Tested + 04/14/2020 Developed symptoms 04/14/2020 Continue remdesivir and dexamethasone 04/27/2020 quarantine complete (3) Asthma: Code(s): J45.909 - Unspecified asthma, uncomplicated Status: Acute Assessment and Plan: Continue nebulizers and inhaler Give supplementary oxygen as needed (4) HTN (hypertension): Code(s): I10 - Essential (primary) hypertension Status: Acute Assessment and Plan: Blood pressures stable Continue metoprolol 25 mg daily Will monitor and adjust as needed Vital signs as ordered (5) Diabetes mellitus: Code(s): E11.9 - Type 2 diabetes mellitus without complications Status: Acute Assessment and Plan: Blood sugar stable Will continue Lantus 25 units at bedtime with sliding scale, Accu-Cheks and hypoglycemic protocol (6) Bipolar 1 disorder: Code(s): F31.9 - Bipolar disorder, unspecified Status: Acute Assessment and Plan: Continue home medication, Cymbalta, hydroxyzine, vilazodone (7) Nausea vomiting and diarrhea: Code(s): R11.2 - Nausea with vomiting, unspecified; R19.7 - Diarrhea, unspecified Status: Acute Assessment and Plan: Resolved Possibly secondary to pneumonia versus Covid Continue Zofran and Imodium (8) Leukocytopenia: Code(s): D72.819 - Decreased white blood cell count, unspecified Status: Acute Assessment and Plan: Possibly secondary to psychotropic medication versus viral infection Will continue to monitor Review of Systems Review of Systems: All systems reviewed & are unremarkable except as noted in HPI and below (10 point system review) Exam Narrative: Exam Narrative: GENERAL: This is a well-nourished in no apparent distress. HEAD: normocephalic, atraumatic. EYES: PERRL. Sclera clear/white. Vision is grossly intact. EARS: External ears normal, auditory canals clear and without drainage, TMs normal without perforation. Hearing grossly intact. NOSE: External nose normal with no obvious nasal discharge, nares without redness, no rhinorrhea. THROAT: Mucous membranes moist, posterior pharynx clear. NECK: Neck supple, non-tender without lymphadenopathy, masses or thyromegaly. CARDIOVASCULAR: Regular rate and rhythm without murmurs, gallops, or rubs. RESPIRATORY: Lung sounds diminished GASTROINTESTINAL: Abdomen soft, non-tender, nondistended. Bowel sounds are active. No hepato-splenomegaly, or palpable masses. No guarding. SKIN: warm, intact with no suspicious lesions or rash, good texture and turgor. NEURO: awake, alert, and oriented to person, place and time. There were no obvious focal neurologic abnormalities. Steady gait EXTREMITIES: Normal range of motion. No edema. No calf tenderness. Negative Homans sign bilaterally. BACK: Nontender without deformity or crepitance. No flank tenderness. Objective Data Vital Signs Vital Signs: Vital Signs - 24 hr 04/17/20 15:30 04/17/20 23:43 04/18/20 08:00 Temperature 99 F 97.4 F L 97.6 F Pulse Rate 71 71 74 Respiratory Rate 18 18 18 Blood Pressure 180/76 H 170/79 H 162/91 H Pulse Oximetry 94 96 94 04/18/20 09:17 Temperature Pulse Rate 74 Respiratory Rate Blood Pressure Pulse Oximetry Intake/Output Intake/Output: Intake & Output 04/15/20 04/16/20 04/17/20 04/18/20 23:59 23:59 23:59 23:59 Intake Total 4020.
[2020-04-18 15:29] VITALS: BP 181/79; PULSE 68; RESP 18; TEMP 36.4; O2SAT 94
[2020-04-18 17:12] LABS: Glucose Point of Care 213 (65-105)
[2020-04-18 17:12] LABS: Glucose Point of Care 353 (65-105)
[2020-04-18] MEDS: DULoxetine HCL 30 MG CAPSULE.DR 60 MG PO (20:26)
[2020-04-18] MEDS: rOPINIRole HCL 0.5 MG TABLET 0.25 MG PO (20:27)
[2020-04-18] MEDS: traZODone HCL 50 MG TABLET 150 MG PO (20:36)
[2020-04-18] MEDS: traMADol HCL (*CRX) 50 MG TABLET PO (20:36)
[2020-04-18] MEDS: INSULIN GLARGINE (*BKC) 100 UNITS/ML 25 UNITS SUB-Q (20:55)
[2020-04-18 20:56] LABS: Glucose Point of Care 296 (65-105)
[2020-04-19] VITALS: BP 115/54; PULSE 18; RESP 18; TEMP 36.2; O2SAT 98
[2020-04-19 06:03] LABS: Hematocrit 38.9 % (35.0-49.0); Hemoglobin 13.1 g/dL (12.0-15.0); Mean Corpuscular HGB Conc 33.7 g/dL (32.0-36.0); Mean Corpuscular Hemoglobin 31.1 pg (27.0-31.0); Mean Corpuscular Volume 92.4 fL (78.0-102.0); Mean Platelet Volume 8.8 fl (9.2-11.8); Platelet Count Result 328 K/mm3 (150-420); Red Blood Count 4.21 M/mm3 (4.20-5.40); Red Cell Distribution Width 12.5 % (11.6-14.4); White Blood Count 6.4 K/mm3 (4.8-10.8)
[2020-04-19 06:25] LABS: Alanine Aminotransferase 44 U/L (14-59); Albumin Level 3.4 g/dL (3.4-5.0); Alkaline Phosphatase 76 U/L (46-116); Anion Gap 11 mmol/L (8-16); Aspartate Amino Transferase 13 U/L (15-37); Bilirubin,Total 0.2 mg/dL (0.00-1.00); Blood Urea Nitrogen 23 mg/dL (7-18); Calcium 9.3 mg/dL (8.5-10.1); Carbon Dioxide 26 mmol/L (21-32); Chloride 101 mmol/L (98-108); Estimated CRCL calculation 89 ml/min; Estimated Glomerular Filt Rate > 60; Glucose 207 mg/dL (70-99); Osmolality Calculated 295 mOsm/kg (285-295); Potassium 3.9 mmol/L (3.5-5.1); Sodium 138 mmol/L (136-145); Total Protein 7.5 g/dL (6.4-8.2)
[2020-04-19 08:00] VITALS: BP 138/74; PULSE 72; RESP 20; TEMP 36; O2SAT 94
[2020-04-19] MEDS: FLUTICASONE PROPIONATE 0.05% NA SPR 16 GM BTL (*BKC) 1 SPRAY NASAL ×2 (08:15→20:45)
[2020-04-19] MEDS: BUDESONIDE/FORMOTEROL (*SP) 160-4.5 MCG 6 GM INH 1 PUFF INHALATION ×2 (08:15→16:35)
[2020-04-19] MEDS: polyethylene glycoL 3350 17 GM POWD.PACK PO (08:15)
[2020-04-19 08:16] VITALS: PULSE 70
[2020-04-19] MEDS: hydrOXYzine HCL 25 MG TABLET 50 MG PO ×2 (08:16→16:34)
[2020-04-19] MEDS: FAMOTIDINE 20 MG TABLET 40 MG PO (08:16)
[2020-04-19] MEDS: SUMAtriptan SUCCINATE 25 MG TABLET 50 MG PO (08:16)
[2020-04-19] MEDS: METOPROLOL TARTRATE 25 MG TABLET PO (08:16)
[2020-04-19] MEDS: PANTOPRAZOLE 40 MG TABLET PO (08:16)
[2020-04-19] MEDS: CHOLECALCIFEROL 1,000 UNITS TABLET 1000 UNITS PO (08:16)
[2020-04-19] MEDS: SACCHAROMYCES BOULARDII 250 MG CAPSULE PO ×2 (08:16→16:35)
[2020-04-19] MEDS: CLOPIDOGREL BISULFATE 75 MG TABLET PO (08:17)
[2020-04-19] MEDS: CALCIUM CARBONATE (OSCAL) 500 MG TABLET PO (08:17)
[2020-04-19] MEDS: DOCUSATE SODIUM 100 MG CAPSULE PO ×2 (08:17→16:34)
[2020-04-19] MEDS: EZETIMIBE 10 MG TABLET PO (08:17)
[2020-04-19] MEDS: MONTELUKAST SODIUM 10 MG TABLET PO (08:17)
[2020-04-19] MEDS: LORATADINE 10 MG TABLET PO (08:17)
[2020-04-19] MEDS: DEXAMETHASONE SOD PHOS INJ 4 MG/ML VIAL 6 MG IV PUSH (08:17)
[2020-04-19] MEDS: DULoxetine HCL 20 MG CAPSULE.DR PO ×2 (08:17→16:34)
[2020-04-19] MEDS: LIDOCAINE 5% PATCH 1 PATCH TRANSDERM (08:18)
--- NOTE | 2020-04-19 08:42 | P.PNIM_ITS ---
Progress Note: A&P Assessment and Plan (1) Community acquired pneumonia: Qualifiers: Laterality: unspecified laterality Qualified Code(s): J18.9 - Pneumonia, unspecified organism Code(s): J18.9 - Pneumonia, unspecified organism Status: Acute Assessment and Plan: * Chest x-ray indicate possible pneumonia * Continue azithromycin and Rocephin * Continue Tessalon Perles, guaifenesin, Flonase, Claritin * Nebulizers * Zofran for the nausea * Imodium for the diarrhea (2) COVID-19: Code(s): U07.1 - COVID-19 Status: Acute Assessment and Plan: * Tested + 04/14/2020 * Developed symptoms 04/14/2020 * Continue remdesivir and dexamethasone * 04/27/2020 quarantine complete (3) Asthma: Code(s): J45.909 - Unspecified asthma, uncomplicated Status: Acute Assessment and Plan: * Continue nebulizers and inhaler * Give supplementary oxygen as needed (4) HTN (hypertension): Code(s): I10 - Essential (primary) hypertension Status: Acute Assessment and Plan: * Blood pressures stable * Continue metoprolol 25 mg daily * Will monitor and adjust as needed * Vital signs as ordered (5) Diabetes mellitus: Code(s): E11.9 - Type 2 diabetes mellitus without complications Status: Acute Assessment and Plan: * Blood sugar stable * Will continue Lantus 25 units at bedtime with sliding scale, Accu-Cheks and hypoglycemic protocol (6) Bipolar 1 disorder: Code(s): F31.9 - Bipolar disorder, unspecified Status: Acute Assessment and Plan: * Continue home medication, Cymbalta, hydroxyzine, vilazodone (7) Nausea vomiting and diarrhea: Code(s): R11.2 - Nausea with vomiting, unspecified; R19.7 - Diarrhea, unspecified Status: Acute Assessment and Plan: * Resolved * Possibly secondary to pneumonia versus Covid * Continue Zofran and Imodium (8) Leukocytopenia: Code(s): D72.819 - Decreased white blood cell count, unspecified Status: Acute Assessment and Plan: * Possibly secondary to psychotropic medication versus viral infection * Will continue to monitor Subjective Date/time seen: 04/19/20 08:42 Objective Data Vital Signs Vital Signs: Vital Signs - 24 hr 04/18/20 09:17 12/07/20 15:29 04/19/20 00:00 Temperature 97.5 F L 97.2 F L Pulse Rate 74 68 18 L Respiratory Rate 18 18 Blood Pressure 181/79 H 115/54 L Pulse Oximetry 94 98 04/19/20 08:00 04/19/20 08:16 Temperature 96.8 F L Pulse Rate 72 70 Respiratory Rate 20 Blood Pressure 138/74 Pulse Oximetry 94 Intake/Output Intake/Output: Intake & Output 04/16/20 04/17/20 04/18/20 04/19/20 23:59 23:59 23:59 23:59 Intake Total 4370 4080 1510 300 Output Total 800 1150 850 Balance 3570 2930 660 300 Meds/Results Medications: Active Medications Generic Name Dose Route Start Last Admin Trade Name Freq PRN Reason Stop Dose Admin Acetaminophen 650 mg 04/14/20 20:56 04/18/20 06:18 Acetaminophen 325 Mg Tablet PO 650 mg Q4H PRN Administration Mild Pain (1-3) or Fever Albuterol 1 - 2 puff 04/15/20 09:00 Albuterol Sulfate (*Sp) Inhaler INHALATION QID PRN Shortness
--- NOTE | 2020-04-19 08:42 | PM.IMPN ---
Progress Note: A&P Assessment and Plan (1) Community acquired pneumonia: Qualifiers: Laterality: unspecified laterality Qualified Code(s): J18.9 - Pneumonia, unspecified organism Code(s): J18.9 - Pneumonia, unspecified organism Status: Acute Assessment and Plan: Chest x-ray indicate possible pneumonia Continue azithromycin and Rocephin Continue Tessalon Perles, guaifenesin, Flonase, Claritin Nebulizers Zofran for the nausea Imodium for the diarrhea (2) COVID-19: Code(s): U07.1 - COVID-19 Status: Acute Assessment and Plan: Tested + 04/14/2020 Developed symptoms 04/14/2020 Continue remdesivir and dexamethasone 04/27/2020 quarantine complete (3) Asthma: Code(s): J45.909 - Unspecified asthma, uncomplicated Status: Acute Assessment and Plan: Continue nebulizers and inhaler Give supplementary oxygen as needed (4) HTN (hypertension): Code(s): I10 - Essential (primary) hypertension Status: Acute Assessment and Plan: Blood pressures stable Continue metoprolol 25 mg daily Will monitor and adjust as needed Vital signs as ordered (5) Diabetes mellitus: Code(s): E11.9 - Type 2 diabetes mellitus without complications Status: Acute Assessment and Plan: Blood sugar stable Will continue Lantus 25 units at bedtime with sliding scale, Accu-Cheks and hypoglycemic protocol (6) Bipolar 1 disorder: Code(s): F31.9 - Bipolar disorder, unspecified Status: Acute Assessment and Plan: Continue home medication, Cymbalta, hydroxyzine, vilazodone (7) Nausea vomiting and diarrhea: Code(s): R11.2 - Nausea with vomiting, unspecified; R19.7 - Diarrhea, unspecified Status: Acute Assessment and Plan: Resolved Possibly secondary to pneumonia versus Covid Continue Zofran and Imodium (8) Leukocytopenia: Code(s): D72.819 - Decreased white blood cell count, unspecified Status: Acute Assessment and Plan: Possibly secondary to psychotropic medication versus viral infection Will continue to monitor Subjective Date/time seen: 04/19/20 08:42 Objective Data Vital Signs Vital Signs: Vital Signs - 24 hr 04/18/20 09:17 04/18/20 15:29 04/19/20 00:00 Temperature 97.5 F L 97.2 F L Pulse Rate 74 68 18 L Respiratory Rate 18 18 Blood Pressure 181/79 H 115/54 L Pulse Oximetry 94 98 04/19/20 08:00 04/19/20 08:16 Temperature 96.8 F L Pulse Rate 72 70 Respiratory Rate 20 Blood Pressure 138/74 Pulse Oximetry 94 Intake/Output Intake/Output: Intake & Output 04/16/20 04/17/20 04/18/20 04/19/20 23:59 23:59 23:59 23:59 Intake Total 4370 4080 1510 300 Output Total 800 1150 850 Balance 3570 2930 660 300 Meds/Results Medications: Active Medications Generic Name Dose Route Start Last Admin Trade Name Freq PRN Reason Stop Dose Admin Acetaminophen 650 mg 04/14/20 20:56 04/18/20 06:18 Acetaminophen 325 Mg Tablet PO 650 mg Q4H PRN Administration Mild Pain (1-3) or Fever Albuterol 1 - 2 puff 04/15/20 09:00 Albuterol Sulfate (*Sp) Inhaler INHALATION QID PRN Shortness Of Breath Budesonide/Formoterol Fumarate 1 puff 04/15/20 09:00 04/19/20 08:15 Budesonide/Formoterol (*Sp) 160-4.5 Mcg 6 Gm Inh INHALATION 1 puff BID SANDRA Administration Calcium Carbonate 500 mg 04/15/20 09:00 04/19/20 08:17 Calcium Carbonate (Oscal) 500 Mg Tablet PO 500 mg QAM SANDRA Administration Clonazepam 0.25 mg 04/17/20 10:46 04/18/20 20:26 Clonazepam (*Crx) 0.5 Mg Tablet PO 0.25 mg TID PRN Administration Anxiety Clopidogrel Bisulfate 75 mg 04/15/20 09:00 04/19/20 08:17 Clopidogrel Bisulfate 75 Mg Tablet PO 75 mg DAILY SANDRA Administration Dexamethasone Sodium Phosphate 6 mg 04/15/20 09:00 04/19/20 08:17 Dexamethasone Sod Phos Inj 4 Mg/Ml Vial IV PUSH 04/24/20 09:01 6 mg DAILY SANDRA Adminis
[2020-04-19] MEDS: GABAPENTIN 300 MG CAPSULE 900 MG PO ×2 (09:02→20:43)
[2020-04-19] MEDS: clonazePAM (*CRX) 0.5 MG TABLET 0.25 MG PO ×2 (09:02→20:43)
[2020-04-19] MEDS: REMDESIVIR 100 MG/NS 250 ML 100 MG/250 ML BAG 250 MG IVPB (09:03)
[2020-04-19 09:25] LABS: Glucose Point of Care 164 (65-105)
--- NOTE | 2020-04-19 12:39 | P.PN_ITS ---
Progress Note: A&P Assessment and Plan (1) Community acquired pneumonia: Qualifiers: Laterality: unspecified laterality Qualified Code(s): J18.9 - Pneumonia, unspecified organism <Keegan IvanCHRIS lopez - Last Filed: 04/19/20 12:55> Code(s): J18.9 - Pneumonia, unspecified organism <Keegan IvanSHENA lopezC - Last Filed: 04/19/20 12:55> Status: Acute <Keegan White SHENA AbarcaC - Last Filed: 04/19/20 12:55> Assessment and Plan: * Chest x-ray indicate possible pneumonia * Continue azithromycin and Rocephin * Nebulizers * Zofran for the nausea * Imodium for the diarrhea 04/19/2020 patient is on azithromycin and Rocephin <Keegan PatelSHENA HernandezC - Last Filed: 04/19/20 12:55> (2) COVID-19: Code(s): U07.1 - COVID-19 <Keegan PatelCHRIS Hernandez - Last Filed: 04/19/20 12:55> Status: Acute <Keegan White SHENA AbarcaC - Last Filed: 04/19/20 12:55> Assessment and Plan: * Tested + 04/14/2020 * Developed symptoms 04/14/2020 * Continue remdesivir and dexamethasone * 04/27/2020 quarantine complete 04/19/2020 continue albuterol, Symbicort, Decadron, today is last dose of Remdesivir, supplemental oxygen as needed to maintain SpO2 92% or better, monitor for any deterioration <Keegan PatelCHRIS Hernandez - Last Filed: 04/19/20 12:55> (3) Asthma: Code(s): J45.909 - Unspecified asthma, uncomplicated <Keegan PatelSHENA HernandezC - Last Filed: 04/19/20 12:55> Status: Acute <Keegan PatelSHENA HernandezC - Last Filed: 04/19/20 12:55> Assessment and Plan: * Continue nebulizers and inhaler * Give supplementary oxygen as needed 04/19/2020 supplemental oxygen as needed, continue albuterol and Symbicort <Keegan AmandaAlbina Abarca APN-C - Last Filed: 04/19/20 12:55> (4) HTN (hypertension): Code(s): I10 - Essential (primary) hypertension <Keegan AbarcaELENA-C - Last Filed: 04/19/20 12:55> Status: Acute <Keegan AbarcaELENA-C - Last Filed: 04/19/20 12:55> Assessment and Plan: * Blood pressures stable * Continue metoprolol 25 mg daily * Will monitor and adjust as needed * Vital signs as ordered 04/19/2020 blood pressure was little elevated overnight now 130s over 70s, continue home medication, monitor vital signs <Keegan IvanELENA lopez-C - Last Filed: 04/19/20 12:55> (5) Diabetes mellitus: Code(s): E11.9 - Type 2 diabetes mellitus without complications <Keegan IvanELENA lopez-C - Last Filed: 04/19/20 12:55> Status: Acute <Keegan IvanELENA lopez-C - Last Filed: 04/19/20 12:55> Assessment and Plan: * Blood sugar stable * Will continue Lantus 25 units at bedtime with sliding scale, Accu-Cheks and hypoglycemic protocol 04/19/2020 glucose has been between 150 and 290, patient is taking Decadron, continue Accu-Cheks and hypoglycemic interventions as needed, no change to insulin at this time <Keegan IvanELENA lopez-C - Last Filed: 04/19/20 12:55> (6) Bipolar 1 disorder: Code(s): F31.9 - Bipolar disorder, unspecified <Keegan IvanELENA lopez-C - Last Filed: 04/19/20 12:55> Status: Acute <Keegan IvanELENA lopez-C - Last Filed: 04/19/20 12:55> Assessment and Plan: * Continue home medication, Cymbalta, hydroxyzine, vilazodone 04/19/2020 continue with home medications <Keegan IvanELENA lopez-C - Last Filed: 04/19/20 12:55> (7) Nausea vomiting and diarrhea: Code(s): R11.2 - Nausea with vomiting, unspecified; R19.7 - Diarrhea, unspecified <Keegan Abarca APN-Ben - Last Filed: 04/19/20 12:55> Status: Acute <Ri
--- NOTE | 2020-04-19 12:39 | WPDPN ---
Progress Note: A&P Assessment and Plan (1) Community acquired pneumonia: Qualifiers: Laterality: unspecified laterality Qualified Code(s): J18.9 - Pneumonia, unspecified organism <Keegan IvanSHENA lopezC - Last Filed: 04/19/20 12:55> Code(s): J18.9 - Pneumonia, unspecified organism <Keegan IvanELENA lopez-C - Last Filed: 04/19/20 12:55> Status: Acute <Keegan White ELENA Abarca-C - Last Filed: 04/19/20 12:55> Assessment and Plan: Chest x-ray indicate possible pneumonia Continue azithromycin and Rocephin Nebulizers Zofran for the nausea Imodium for the diarrhea 04/19/2020 patient is on azithromycin and Rocephin <Keegan PatelAlbina Abarca APN-C - Last Filed: 04/19/20 12:55> (2) COVID-19: Code(s): U07.1 - COVID-19 <Keegan PatelSHENA HernandezC - Last Filed: 04/19/20 12:55> Status: Acute <Keegan PatelAlbina Abarca APN-C - Last Filed: 04/19/20 12:55> Assessment and Plan: Tested + 04/14/2020 Developed symptoms 04/14/2020 Continue remdesivir and dexamethasone 04/27/2020 quarantine complete 04/19/2020 continue albuterol, Symbicort, Decadron, today is last dose of Remdesivir, supplemental oxygen as needed to maintain SpO2 92% or better, monitor for any deterioration <Keegan PatelSHENA HernandezC - Last Filed: 04/19/20 12:55> (3) Asthma: Code(s): J45.909 - Unspecified asthma, uncomplicated <Keegan AmandaAlbina Abarca APN-C - Last Filed: 04/19/20 12:55> Status: Acute <Keegan AmandaAlbina Abarca APN-C - Last Filed: 04/19/20 12:55> Assessment and Plan: Continue nebulizers and inhaler Give supplementary oxygen as needed 04/19/2020 supplemental oxygen as needed, continue albuterol and Symbicort <Keegan Abarca APN-C - Last Filed: 04/19/20 12:55> (4) HTN (hypertension): Code(s): I10 - Essential (primary) hypertension <Keegan PatelCHRIS Hernandez - Last Filed: 04/19/20 12:55> Status: Acute <Keegan White CHRIS Abarca - Last Filed: 04/19/20 12:55> Assessment and Plan: Blood pressures stable Continue metoprolol 25 mg daily Will monitor and adjust as needed Vital signs as ordered 04/19/2020 blood pressure was little elevated overnight now 130s over 70s, continue home medication, monitor vital signs <Keegan PatelCHRIS Hernandez - Last Filed: 04/19/20 12:55> (5) Diabetes mellitus: Code(s): E11.9 - Type 2 diabetes mellitus without complications <Keegan PatelCHRIS Hernandez - Last Filed: 04/19/20 12:55> Status: Acute <Keegan PatelCHRIS Hernandez - Last Filed: 04/19/20 12:55> Assessment and Plan: Blood sugar stable Will continue Lantus 25 units at bedtime with sliding scale, Accu-Cheks and hypoglycemic protocol 04/19/2020 glucose has been between 150 and 290, patient is taking Decadron, continue Accu-Cheks and hypoglycemic interventions as needed, no change to insulin at this time <Keegan PatelCHRIS Hernandez - Last Filed: 04/19/20 12:55> (6) Bipolar 1 disorder: Code(s): F31.9 - Bipolar disorder, unspecified <Keegan AmandaCHRIS Hernandez - Last Filed: 04/19/20 12:55> Status: Acute <Keegan PatelCHRIS Hernandez - Last Filed: 04/19/20 12:55> Assessment and Plan: Continue home medication, Cymbalta, hydroxyzine, vilazodone 04/19/2020 continue with home medications <Keegan AmandaCHRIS Hernandez - Last Filed: 04/19/20 12:55> (7) Nausea vomiting and diarrhea: Code(s): R11.2 - Nausea with vomiting, unspecified; R19.7 - Diarrhea, unspecified <CHRIS Crook - Last Filed: 04/19/20 12:55> Status: Acute <CHRIS Crook - Last Filed: 04/19/20 12:55> Assessment and Plan: Resolved Possibly secondary to pneumonia versus Covid Continue Zofran and Imodium 04/19/2020 continue with medications, patient had no complaints of nausea vomiting or diarrhea today <CHRIS Crook - Last Filed: 04/19/20 12:55> (8) Leukocytopenia: Code(s):
[2020-04-19] MEDS: traMADol HCL (*CRX) 50 MG TABLET PO (13:52)
[2020-04-19 15:42] VITALS: BP 187/123; PULSE 76; RESP 18; TEMP 36.7; O2SAT 94
--- NOTE | 2020-04-19 15:50 | PC.NURSE ---
pt is visibly upset and crying, thinks that she will have to live on the [address], expresses that she will not go back to [facility] as she does not feel safe there, attempted to calm pt down with verbal reassurance
[2020-04-19 16:47] LABS: Glucose Point of Care 381 (65-105)
[2020-04-19 19:18] VITALS: O2SAT 94
[2020-04-19] MEDS: rOPINIRole HCL 0.5 MG TABLET 0.25 MG PO (20:42)
[2020-04-19] MEDS: DULoxetine HCL 30 MG CAPSULE.DR 60 MG PO (20:43)
[2020-04-19] MEDS: traZODone HCL 50 MG TABLET 150 MG PO (20:44)
[2020-04-19] MEDS: INSULIN GLARGINE (*BKC) 100 UNITS/ML 25 UNITS SUB-Q (20:45)
[2020-04-19 21:00] LABS: Glucose Point of Care 343 (65-105)
[2020-04-20] VITALS: BP 140/75; PULSE 65; RESP 18; TEMP 36.3; O2SAT 95
--- NOTE | 2020-04-20 02:13 | PC.NURSE ---
Pt. sleeping, no distress noted.
[2020-04-20 05:58] LABS: Hematocrit 39.6 % (35.0-49.0); Hemoglobin 13.1 g/dL (12.0-15.0); Mean Corpuscular HGB Conc 33.1 g/dL (32.0-36.0); Mean Corpuscular Volume 93.6 fL (78.0-102.0); Mean Platelet Volume 8.9 fl (9.2-11.8); Platelet Count Result 333 K/mm3 (150-420); Red Blood Count 4.23 M/mm3 (4.20-5.40); Red Cell Distribution Width 12.5 % (11.6-14.4)
[2020-04-20 06:14] LABS: Anion Gap 10 mmol/L (8-16); Blood Urea Nitrogen 25 mg/dL (7-18); Calcium 9.4 mg/dL (8.5-10.1); Carbon Dioxide 29 mmol/L (21-32); Chloride 102 mmol/L (98-108); Estimated CRCL calculation 91 ml/min; Estimated Glomerular Filt Rate > 60; Glucose 224 mg/dL (70-99); Osmolality Calculated 303 mOsm/kg (285-295); Potassium 4.2 mmol/L (3.5-5.1); Sodium 141 mmol/L (136-145)
[2020-04-20 07:54] LABS: Glucose Point of Care 183 (65-105)
[2020-04-20] MEDS: GABAPENTIN 300 MG CAPSULE 900 MG PO ×3 (07:55→20:52)
[2020-04-20] MEDS: FAMOTIDINE 20 MG TABLET 40 MG PO (07:56)
[2020-04-20] MEDS: CHOLECALCIFEROL 1,000 UNITS TABLET 1000 UNITS PO (07:56)
[2020-04-20] MEDS: polyethylene glycoL 3350 17 GM POWD.PACK PO (07:56)
[2020-04-20] MEDS: LIDOCAINE 5% PATCH 1 PATCH TRANSDERM (07:56)
[2020-04-20] MEDS: FLUTICASONE PROPIONATE 0.05% NA SPR 16 GM BTL (*BKC) 1 SPRAY NASAL ×2 (07:57→20:52)
[2020-04-20] MEDS: BUDESONIDE/FORMOTEROL (*SP) 160-4.5 MCG 6 GM INH 1 PUFF INHALATION ×2 (07:57→16:41)
[2020-04-20 07:58] VITALS: PULSE 64
[2020-04-20] MEDS: CALCIUM CARBONATE (OSCAL) 500 MG TABLET PO (07:58)
[2020-04-20] MEDS: PANTOPRAZOLE 40 MG TABLET PO (07:58)
[2020-04-20] MEDS: hydrOXYzine HCL 25 MG TABLET 50 MG PO ×2 (07:58→16:42)
[2020-04-20] MEDS: METOPROLOL TARTRATE 25 MG TABLET PO (07:58)
[2020-04-20] MEDS: MONTELUKAST SODIUM 10 MG TABLET PO (07:58)
[2020-04-20] MEDS: CLOPIDOGREL BISULFATE 75 MG TABLET PO (07:59)
[2020-04-20] MEDS: DULoxetine HCL 20 MG CAPSULE.DR PO ×2 (07:59→16:42)
[2020-04-20] MEDS: LORATADINE 10 MG TABLET PO (07:59)
[2020-04-20] MEDS: SACCHAROMYCES BOULARDII 250 MG CAPSULE PO ×2 (07:59→16:42)
[2020-04-20 08:00] VITALS: BP 130/70; PULSE 64; RESP 18; TEMP 36.9; O2SAT 94
[2020-04-20] MEDS: EZETIMIBE 10 MG TABLET PO (08:10)
[2020-04-20] MEDS: DOCUSATE SODIUM 100 MG CAPSULE PO ×2 (08:10→16:42)
[2020-04-20] MEDS: clonazePAM (*CRX) 0.5 MG TABLET 0.25 MG PO ×2 (08:36→16:42)
[2020-04-20] MEDS: DEXAMETHASONE SOD PHOS INJ 4 MG/ML VIAL 6 MG IV PUSH (08:37)
[2020-04-20 11:12] LABS: Glucose Point of Care 299 (65-105)
--- NOTE | 2020-04-20 12:43 | P.PN_ITS ---
Progress Note: A&P Assessment and Plan (1) Community acquired pneumonia: Qualifiers: Laterality: unspecified laterality Qualified Code(s): J18.9 - Pneumonia, unspecified organism <CHRIS Crook - Last Filed: 04/20/20 13:19> Code(s): J18.9 - Pneumonia, unspecified organism <Keegan Abarca APN-C - Last Filed: 04/20/20 13:19> Status: Acute <Keegan Abarca APN-C - Last Filed: 04/20/20 13:19> Assessment and Plan: * Chest x-ray indicate possible pneumonia * Continue azithromycin and Rocephin * Nebulizers * Zofran for the nausea * Imodium for the diarrhea 04/19/2020 patient is on azithromycin and Rocephin 04/20/2020 Rocephin stopped around midnight, continue with Azithromycin. <SHENA CrookC - Last Filed: 04/20/20 13:19> (2) COVID-19: Code(s): U07.1 - COVID-19 <Keegan Abarca APN-C - Last Filed: 04/20/20 13:19> Status: Acute <Keegan Abarca APN-C - Last Filed: 04/20/20 13:19> Assessment and Plan: * Tested + 04/14/2020 * Developed symptoms 04/14/2020 * Continue remdesivir and dexamethasone * 04/27/2020 quarantine complete 04/19/2020 continue albuterol, Symbicort, Decadron, today is last dose of Remdesivir, supplemental oxygen as needed to maintain SpO2 92% or better, monitor for any deterioration 04/20/2020 isolation continuing to 04/24/2020, continue azithromycin last dose will be 04/20 continue with Decadron last dose will be 04/25 <Keegan Abarca APN-C - Last Filed: 04/20/20 13:19> (3) Asthma: Code(s): J45.909 - Unspecified asthma, uncomplicated <Keegan Abarca APN-C - Last Filed: 04/20/20 13:19> Status: Acute <Keegan Abarca APN-C - Last Filed: 04/20/20 13:19> Assessment and Plan: * Continue nebulizers and inhaler * Give supplementary oxygen as needed 04/19/2020 supplemental oxygen as needed, continue albuterol and Symbicort 04/20/2020 continue with current regimen <Keegan PatelCHRIS Hernandez - Last Filed: 04/20/20 13:19> (4) HTN (hypertension): Code(s): I10 - Essential (primary) hypertension <CHRIS Crook - Last Filed: 04/20/20 13:19> Status: Acute <Keegan AmandaCHRIS Hernandez - Last Filed: 04/20/20 13:19> Assessment and Plan: * Blood pressures stable * Continue metoprolol 25 mg daily * Will monitor and adjust as needed * Vital signs as ordered 04/19/2020 blood pressure was little elevated overnight now 130s over 70s, continue home medication, monitor vital signs 04/20/2020 blood pressure this morning 140/75, no changes at this time <CHRIS Crook - Last Filed: 04/20/20 13:19> (5) Diabetes mellitus: Code(s): E11.9 - Type 2 diabetes mellitus without complications <CHRIS Crook - Last Filed: 04/20/20 13:19> Status: Acute <Keegan AmandaCHRIS Hernandez - Last Filed: 04/20/20 13:19> Assessment and Plan: * Blood sugar stable * Will continue Lantus 25 units at bedtime with sliding scale, Accu-Cheks and hypoglycemic protocol 04/19/2020 glucose has been between 150 and 290, patient is taking Decadron, continue Accu-Cheks and hypoglycemic interventions as needed, no change to insulin at this time 04/20/2020 glucose in the 300s x2 yesterday evening during the day 160-180 <CHRIS Crook - Last Filed: 04/20/20 13:19> (6) Bipolar 1 disorder: Code(s): F31.9 - Bipolar disorder, unspecified <CHRIS Crook - Last Filed: 04/20/20 13:19> Status: Acute <CHRIS Crook - Last Filed: 12/09/20 13:19> Assessment and
--- NOTE | 2020-04-20 12:43 | WPDPN ---
Progress Note: A&P Assessment and Plan (1) Community acquired pneumonia: Qualifiers: Laterality: unspecified laterality Qualified Code(s): J18.9 - Pneumonia, unspecified organism <Keegan PatelAlbina Abarca APN-C - Last Filed: 04/20/20 13:19> Code(s): J18.9 - Pneumonia, unspecified organism <Keegan PatelAlbina Abarca APN-C - Last Filed: 04/20/20 13:19> Status: Acute <Keegan AmandaAlbina Abarca APN-C - Last Filed: 04/20/20 13:19> Assessment and Plan: Chest x-ray indicate possible pneumonia Continue azithromycin and Rocephin Nebulizers Zofran for the nausea Imodium for the diarrhea 04/19/2020 patient is on azithromycin and Rocephin 04/20/2020 Rocephin stopped around midnight, continue with Azithromycin. <Keegan Abarca APN-C - Last Filed: 04/20/20 13:19> (2) COVID-19: Code(s): U07.1 - COVID-19 <Keegan Christopher Abarca APN-C - Last Filed: 04/20/20 13:19> Status: Acute <Keegan AmandaAlbina Abarca APN-C - Last Filed: 04/20/20 13:19> Assessment and Plan: Tested + 04/14/2020 Developed symptoms 04/14/2020 Continue remdesivir and dexamethasone 04/27/2020 quarantine complete 04/19/2020 continue albuterol, Symbicort, Decadron, today is last dose of Remdesivir, supplemental oxygen as needed to maintain SpO2 92% or better, monitor for any deterioration 04/20/2020 isolation continuing to 04/24/2020, continue azithromycin last dose will be 04/20 continue with Decadron last dose will be 04/25 <Keegan Abarca APN-C - Last Filed: 04/20/20 13:19> (3) Asthma: Code(s): J45.909 - Unspecified asthma, uncomplicated <Keegan Abarca APN-C - Last Filed: 04/20/20 13:19> Status: Acute <Keegan Abarca APN-C - Last Filed: 04/20/20 13:19> Assessment and Plan: Continue nebulizers and inhaler Give supplementary oxygen as needed 04/19/2020 supplemental oxygen as needed, continue albuterol and Symbicort 04/20/2020 continue with current regimen <CHRIS Crook - Last Filed: 04/20/20 13:19> (4) HTN (hypertension): Code(s): I10 - Essential (primary) hypertension <CHRIS Crook - Last Filed: 04/20/20 13:19> Status: Acute <Keegan AmandaCHRIS Hernandez - Last Filed: 04/20/20 13:19> Assessment and Plan: Blood pressures stable Continue metoprolol 25 mg daily Will monitor and adjust as needed Vital signs as ordered 04/19/2020 blood pressure was little elevated overnight now 130s over 70s, continue home medication, monitor vital signs 04/20/2020 blood pressure this morning 140/75, no changes at this time <CHRIS Crook - Last Filed: 04/20/20 13:19> (5) Diabetes mellitus: Code(s): E11.9 - Type 2 diabetes mellitus without complications <CHRIS Crook - Last Filed: 04/20/20 13:19> Status: Acute <Keegan AmandaCHRIS Hernandez - Last Filed: 04/20/20 13:19> Assessment and Plan: Blood sugar stable Will continue Lantus 25 units at bedtime with sliding scale, Accu-Cheks and hypoglycemic protocol 04/19/2020 glucose has been between 150 and 290, patient is taking Decadron, continue Accu-Cheks and hypoglycemic interventions as needed, no change to insulin at this time 04/20/2020 glucose in the 300s x2 yesterday evening during the day 160-180 <CHRIS Crook - Last Filed: 04/20/20 13:19> (6) Bipolar 1 disorder: Code(s): F31.9 - Bipolar disorder, unspecified <CHRIS Crook - Last Filed: 04/20/20 13:19> Status: Acute <CHRIS Crook - Last Filed: 04/20/20 13:19> Assessment and Plan: Continue home medication, Cymbalta, hydroxyzine, vilazodone 04/19/2020 continue with home medications 04/20/2020 no changes at this time <Keegan Abarca APN-Ben - Last Filed: 04/20/20 13:19> (7) Nausea vomiting and diarrhea: Code(s): R11.2 - Nausea with vomiting, unspecified; R19.7 - Diarrhea, unspecified <Keegan Abarca APN
[2020-04-20 16:00] VITALS: BP 156/78; PULSE 74; RESP 20; TEMP 37.1; O2SAT 98
[2020-04-20 16:12] LABS: Glucose Point of Care 280 (65-105)
[2020-04-20 16:58] LABS: Glucose Point of Care 340 (65-105)
--- NOTE | 2020-04-20 19:45 | PC.NURSE ---
Patient requested a warm blanket and thermostat to be turned up. Warm blanket provided and thermostat adjusted.
--- NOTE | 2020-04-20 20:30 | PC.NURSE ---
Patient sitting up in bed on her tablet. No complaints at this time. Call light in reach.
[2020-04-20] MEDS: rOPINIRole HCL 0.5 MG TABLET 0.25 MG PO (20:52)
[2020-04-20] MEDS: DULoxetine HCL 30 MG CAPSULE.DR 60 MG PO (20:52)
[2020-04-20] MEDS: INSULIN GLARGINE (*BKC) 100 UNITS/ML 25 UNITS SUB-Q (20:54)
[2020-04-20 21:44] LABS: Glucose Point of Care 363 (65-105)
[2020-04-20 23:58] VITALS: BP 124/75; PULSE 69; RESP 20; TEMP 36.3; O2SAT 98
[2020-04-21] MEDS: traMADol HCL (*CRX) 50 MG TABLET PO ×3 (02:26→21:06)
[2020-04-21] MEDS: FAMOTIDINE 20 MG TABLET 40 MG PO (07:59)
[2020-04-21] MEDS: DOCUSATE SODIUM 100 MG CAPSULE PO ×2 (07:59→16:10)
[2020-04-21] MEDS: CLOPIDOGREL BISULFATE 75 MG TABLET PO (07:59)
[2020-04-21] MEDS: GABAPENTIN 300 MG CAPSULE 900 MG PO ×3 (07:59→20:50)
[2020-04-21] MEDS: CHOLECALCIFEROL 1,000 UNITS TABLET 1000 UNITS PO (07:59)
[2020-04-21] MEDS: CALCIUM CARBONATE (OSCAL) 500 MG TABLET PO (07:59)
[2020-04-21] MEDS: hydrOXYzine HCL 25 MG TABLET 50 MG PO ×2 (07:59→16:10)
[2020-04-21] MEDS: DULoxetine HCL 20 MG CAPSULE.DR PO ×2 (07:59→16:10)
[2020-04-21 08:00] VITALS: BP 154/79; PULSE 68; RESP 18; TEMP 36.6; O2SAT 96
[2020-04-21] MEDS: LORATADINE 10 MG TABLET PO (08:00)
[2020-04-21] MEDS: ENOXAPARIN 40 MG/0.4 ML SYRINGE SUB-Q (08:00)
[2020-04-21] MEDS: METOPROLOL TARTRATE 25 MG TABLET PO (08:00)
[2020-04-21] MEDS: LIDOCAINE 5% PATCH 1 PATCH TRANSDERM (08:00)
[2020-04-21] MEDS: SACCHAROMYCES BOULARDII 250 MG CAPSULE PO ×2 (08:00→16:10)
[2020-04-21] MEDS: polyethylene glycoL 3350 17 GM POWD.PACK PO (08:00)
[2020-04-21] MEDS: PANTOPRAZOLE 40 MG TABLET PO (08:01)
[2020-04-21] MEDS: MONTELUKAST SODIUM 10 MG TABLET PO (08:01)
[2020-04-21] MEDS: BUDESONIDE/FORMOTEROL (*SP) 160-4.5 MCG 6 GM INH 1 PUFF INHALATION ×2 (08:01→16:10)
[2020-04-21] MEDS: EZETIMIBE 10 MG TABLET PO (08:01)
[2020-04-21] MEDS: DEXAMETHASONE SOD PHOS INJ 4 MG/ML VIAL 6 MG IV PUSH (08:01)
[2020-04-21 08:34] LABS: Glucose Point of Care 127 (65-105)
--- NOTE | 2020-04-21 10:30 | PC.NURSE ---
Patient resting in bed. Reports no needs at this time. Call light within reach.
[2020-04-21] MEDS: clonazePAM (*CRX) 0.5 MG TABLET 0.25 MG PO ×3 (11:20→20:44)
[2020-04-21 11:31] LABS: Glucose Point of Care 320 (65-105)
--- NOTE | 2020-04-21 12:59 | WPDPN ---
Progress Note: A&P Assessment and Plan (1) Community acquired pneumonia: Qualifiers: Laterality: unspecified laterality Qualified Code(s): J18.9 - Pneumonia, unspecified organism Code(s): J18.9 - Pneumonia, unspecified organism Status: Acute Assessment and Plan: Chest x-ray indicate possible pneumonia Continue azithromycin and Rocephin Nebulizers Zofran for the nausea Imodium for the diarrhea 04/19/2020 patient is on azithromycin and Rocephin 04/20/2020 Rocephin stopped around midnight, continue with Azithromycin. 04/21/2020 continue with azithromycin, possible accepting facility for tomorrow (2) COVID-19: Code(s): U07.1 - COVID-19 Status: Acute Assessment and Plan: Tested + 04/14/2020 Developed symptoms 04/14/2020 Continue remdesivir and dexamethasone 04/27/2020 quarantine complete 04/19/2020 continue albuterol, Symbicort, Decadron, today is last dose of Remdesivir, supplemental oxygen as needed to maintain SpO2 92% or better, monitor for any deterioration 04/20/2020 isolation continuing to 04/24/2020, continue azithromycin last dose will be 04/20 continue with Decadron last dose will be 04/2504/21/2020 isolation and date 04/25/2020, continue with Decadron, patient remains on room air, no respiratory distress, talks in complete sentences, no increased work of breathing no shortness of breath (3) Asthma: Code(s): J45.909 - Unspecified asthma, uncomplicated Status: Acute Assessment and Plan: Continue nebulizers and inhaler Give supplementary oxygen as needed 04/19/2020 supplemental oxygen as needed, continue albuterol and Symbicort 04/20/2020 continue with current regimen 04/21/2020 no changes at this time (4) HTN (hypertension): Code(s): I10 - Essential (primary) hypertension Status: Acute Assessment and Plan: Blood pressures stable Continue metoprolol 25 mg daily Will monitor and adjust as needed Vital signs as ordered 04/19/2020 blood pressure was little elevated overnight now 130s over 70s, continue home medication, monitor vital signs 04/20/2020 blood pressure this morning 140/75, no changes at this time 04/21/2020 vital signs stable blood pressure stable heart rate stable 60s to 70s afebrile (5) Diabetes mellitus: Code(s): E11.9 - Type 2 diabetes mellitus without complications Status: Acute Assessment and Plan: Blood sugar stable Will continue Lantus 25 units at bedtime with sliding scale, Accu-Cheks and hypoglycemic protocol 04/19/2020 glucose has been between 150 and 290, patient is taking Decadron, continue Accu-Cheks and hypoglycemic interventions as needed, no change to insulin at this time 04/20/2020 glucose in the 300s x2 yesterday evening during the day 160-180 04/21/2020 instructed nursing staff to pass along to evening and night staff not to give additional snacks in order to control glucose better (6) Bipolar 1 disorder: Code(s): F31.9 - Bipolar disorder, unspecified Status: Acute Assessment and Plan: Continue home medication, Cymbalta, hydroxyzine, vilazodone 04/19/2020 continue with home medications 04/20/2020 no changes at this time 04/21/2020 no changes at this time with gross medication, possible placement tomorrow (7) Nausea vomiting and diarrhea: Code(s): R11.2 - Nausea with vomiting, unspecified; R19.7 - Diarrhea, unspecified Status: Acute Assessment and Plan: Resolved Possibly secondary to pneumonia versus Covid Continue Zofran and Imodium 04/19/2020 continue with medications, patient had no complaints of nausea vomiting or diarrhea today 04/20/2020 again today patient had no complaints of nausea vomiting or diarrhea 04/21/2020 no change from yesterday no N/V/D (8) Leukocytopenia: Code(s): D72.819 - Decreased white blood cell count, unspecified Status: Acute Assessment and Plan: Possibly secondary to psychotropic
[2020-04-21] MEDS: ONDANSETRON INJ 4 MG/2 ML VIAL IV PUSH (14:26)
--- NOTE | 2020-04-21 14:30 | PC.NURSE ---
Patient resting in bed with hob elevated. Denies any needs at this time. Call light at side.
[2020-04-21 16:25] VITALS: BP 135/74; PULSE 67; RESP 18; TEMP 36.2; O2SAT 96
--- NOTE | 2020-04-21 16:30 | PC.NURSE ---
Patient tearful, worried about placement in care home. This nurse spoke with/comforted patient. Patient calmed down. Denies any needs, just states she is worried about the future. This nurse reassured patient.
[2020-04-21 16:33] LABS: Glucose Point of Care 307 (65-105)
[2020-04-21] MEDS: DULoxetine HCL 30 MG CAPSULE.DR 60 MG PO (20:41)
[2020-04-21] MEDS: rOPINIRole HCL 0.5 MG TABLET 0.25 MG PO (20:42)
[2020-04-21] MEDS: traZODone HCL 50 MG TABLET 150 MG PO (20:43)
[2020-04-21] MEDS: FLUTICASONE PROPIONATE 0.05% NA SPR 16 GM BTL (*BKC) 1 SPRAY NASAL (20:50)
[2020-04-21] MEDS: INSULIN GLARGINE (*BKC) 100 UNITS/ML 25 UNITS SUB-Q (20:51)
[2020-04-21 21:09] LABS: Glucose Point of Care 336 (65-105)
--- NOTE | 2020-04-21 22:59 | PC.NURSE ---
notified that patients IV was pulled out. New orders received to D/C IV antibiotics and start P.O. meds. Leave IV out.
--- NOTE | 2020-04-21 23:15 | PC.NURSE ---
Patient IV site infiltrated. IV was out. patient stated it just slid out. Doctor notified. IV ABT's removed
[2020-04-21 23:51] VITALS: BP 130/70; PULSE 72; RESP 20; TEMP 36.6; O2SAT 96
[2020-04-22 05:58] LABS: Hematocrit 39.2 % (35.0-49.0); Hemoglobin 13.1 g/dL (12.0-15.0); Mean Corpuscular HGB Conc 33.4 g/dL (32.0-36.0); Mean Corpuscular Hemoglobin 31.6 pg (27.0-31.0); Mean Corpuscular Volume 94.5 fL (78.0-102.0); Mean Platelet Volume 8.7 fl (9.2-11.8); Platelet Count Result 350 K/mm3 (150-420); Red Blood Count 4.15 M/mm3 (4.20-5.40); Red Cell Distribution Width 12.7 % (11.6-14.4); White Blood Count 10.1 K/mm3 (4.8-10.8)
[2020-04-22 06:07] LABS: Anion Gap 11 mmol/L (8-16); Blood Urea Nitrogen 25 mg/dL (7-18); Calcium 9.1 mg/dL (8.5-10.1); Carbon Dioxide 25 mmol/L (21-32); Chloride 101 mmol/L (98-108); Estimated CRCL calculation 83 ml/min; Estimated Glomerular Filt Rate > 60; Glucose 190 mg/dL (70-99); Osmolality Calculated 293 mOsm/kg (285-295); Potassium 4.1 mmol/L (3.5-5.1); Sodium 137 mmol/L (136-145)
[2020-04-22] MEDS: clonazePAM (*CRX) 0.5 MG TABLET 0.25 MG PO ×3 (07:58→19:28)
[2020-04-22] MEDS: traMADol HCL (*CRX) 50 MG TABLET PO ×2 (07:58→21:39)
[2020-04-22] MEDS: DEXAMETHASONE 2 MG TABLET 6 MG PO (07:59)
[2020-04-22] MEDS: ENOXAPARIN 40 MG/0.4 ML SYRINGE SUB-Q (07:59)
[2020-04-22] MEDS: GABAPENTIN 300 MG CAPSULE 900 MG PO ×3 (07:59→19:28)
[2020-04-22] MEDS: LIDOCAINE 5% PATCH 1 PATCH TRANSDERM (07:59)
[2020-04-22] MEDS: polyethylene glycoL 3350 17 GM POWD.PACK PO (07:59)
[2020-04-22] MEDS: PANTOPRAZOLE 40 MG TABLET PO (08:00)
[2020-04-22] MEDS: LORATADINE 10 MG TABLET PO (08:00)
[2020-04-22] MEDS: SACCHAROMYCES BOULARDII 250 MG CAPSULE PO ×2 (08:00→17:02)
[2020-04-22] MEDS: hydrOXYzine HCL 25 MG TABLET 50 MG PO ×2 (08:00→17:02)
[2020-04-22] MEDS: CHOLECALCIFEROL 1,000 UNITS TABLET 1000 UNITS PO (08:00)
[2020-04-22 08:01] VITALS: PULSE 68
[2020-04-22] MEDS: CLOPIDOGREL BISULFATE 75 MG TABLET PO (08:01)
[2020-04-22] MEDS: MONTELUKAST SODIUM 10 MG TABLET PO (08:01)
[2020-04-22] MEDS: EZETIMIBE 10 MG TABLET PO (08:01)
[2020-04-22] MEDS: CALCIUM CARBONATE (OSCAL) 500 MG TABLET PO (08:01)
[2020-04-22] MEDS: FLUTICASONE PROPIONATE 0.05% NA SPR 16 GM BTL (*BKC) 1 SPRAY NASAL ×2 (08:01→21:40)
[2020-04-22] MEDS: DOCUSATE SODIUM 100 MG CAPSULE PO ×2 (08:01→17:02)
[2020-04-22] MEDS: FAMOTIDINE 20 MG TABLET 40 MG PO (08:01)
[2020-04-22] MEDS: DULoxetine HCL 20 MG CAPSULE.DR PO ×2 (08:01→17:02)
[2020-04-22] MEDS: METOPROLOL TARTRATE 25 MG TABLET PO (08:01)
[2020-04-22] MEDS: BUDESONIDE/FORMOTEROL (*SP) 160-4.5 MCG 6 GM INH 1 PUFF INHALATION ×2 (08:01→17:02)
[2020-04-22 08:20] VITALS: BP 142/78; PULSE 72; RESP 18; TEMP 36.3; O2SAT 94
--- NOTE | 2020-04-22 10:16 | P.PN_ITS ---
Progress Note: A&P Assessment and Plan (1) Community acquired pneumonia: Qualifiers: Laterality: unspecified laterality Qualified Code(s): J18.9 - Pneumonia, unspecified organism <Keegan PatelCHRIS Hernandez - Last Filed: 04/22/20 10:38> Code(s): J18.9 - Pneumonia, unspecified organism <Keegan PatelCHRIS Hernandez - Last Filed: 04/22/20 10:38> Status: Acute <Keegan White CHRIS Abarca - Last Filed: 04/22/20 10:38> Assessment and Plan: * Chest x-ray indicate possible pneumonia * Continue azithromycin and Rocephin * Nebulizers * Zofran for the nausea * Imodium for the diarrhea 04/19/2020 patient is on azithromycin and Rocephin 04/20/2020 Rocephin stopped around midnight, continue with Azithromycin. 04/21/2020 continue with azithromycin, possible accepting facility for tomorrow 04/22/2020 Pt IV Azithromycin was stopped since her IV infiltrated and is now on PO Levaquin <CHRIS Crook - Last Filed: 04/22/20 10:38> (2) COVID-19: Code(s): U07.1 - COVID-19 <Keegan AmandaCHRIS Hernandez - Last Filed: 04/22/20 10:38> Status: Acute <Keegan PatelCHRIS Hernandez - Last Filed: 04/22/20 10:38> Assessment and Plan: * Tested + 04/14/2020 * Developed symptoms 04/14/2020 * Continue remdesivir and dexamethasone * 04/27/2020 quarantine complete 04/19/2020 continue albuterol, Symbicort, Decadron, today is last dose of Remdesivir, supplemental oxygen as needed to maintain SpO2 92% or better, monitor for any deterioration 04/20/2020 isolation continuing to 04/24/2020, continue azithromycin last dose will be 04/20 continue with Decadron last dose will be 04/2504/21/2020 isolation and date 04/25/2020, continue with Decadron, patient remains on room air, no respiratory distress, talks in complete sentences, no increased work of breathing no shortness of breath 04/22/2020 Pt states her breathing is better today and that in general she feels better <Keegan AbarcaELENA-C - Last Filed: 04/22/20 10:38> (3) Asthma: Code(s): J45.909 - Unspecified asthma, uncomplicated <Keegan Abarca PROFESSOR OF ENGLISH-C - Last Filed: 04/22/20 10:38> Status: Acute <SHASTA CrookN-C - Last Filed: 04/22/20 10:38> Assessment and Plan: * Continue nebulizers and inhaler * Give supplementary oxygen as needed 04/19/2020 supplemental oxygen as needed, continue albuterol and Symbicort 04/20/2020 continue with current regimen 04/21/2020 no changes at this time 04/22/2020 continue without changes <SHASTA CrookN-C - Last Filed: 04/22/20 10:38> (4) HTN (hypertension): Code(s): I10 - Essential (primary) hypertension <Keegan Abarca PROFESSOR [employer] ENGLISH-C - Last Filed: 04/22/20 10:38> Status: Acute <Keegan Abarca APN-C - Last Filed: 04/22/20 10:38> Assessment and Plan: * Blood pressures stable * Continue metoprolol 25 mg daily * Will monitor and adjust as needed * Vital signs as ordered 04/19/2020 blood pressure was little elevated overnight now 130s over 70s, continue home medication, monitor vital signs 04/20/2020 blood pressure this morning 140/75, no changes at this time 04/21/2020 vital signs stable blood pressure stable heart rate stable 60s to 70s afebrile 04/22/2020 vital signs remain stable <Keegan Abarca PROFESSOR [employer] ENGL[employer]-C - Last Filed: 04/22/20 10:38> (5) Diabetes mellitus: Code(s): E11.9 - Type 2 diabetes mellitus without complications <Keegan Abarca PROFESSOR [employer] ENGL[employer]-C - Last Filed: 04/22/20 10:38> Status: Acute <Keegan Abarca PROFESSOR OF ENGL[employer]-C - Last Filed: 04/22/20 10:38> Assessment and Plan:
--- NOTE | 2020-04-22 10:16 | WPDPN ---
Progress Note: A&P Assessment and Plan (1) Community acquired pneumonia: Qualifiers: Laterality: unspecified laterality Qualified Code(s): J18.9 - Pneumonia, unspecified organism <Keegan PatelCHRIS Hernandez - Last Filed: 04/22/20 10:38> Code(s): J18.9 - Pneumonia, unspecified organism <Keegan PatelCHRIS Hernandez - Last Filed: 04/22/20 10:38> Status: Acute <Keegan PatelCHRIS Hernandez - Last Filed: 04/22/20 10:38> Assessment and Plan: Chest x-ray indicate possible pneumonia Continue azithromycin and Rocephin Nebulizers Zofran for the nausea Imodium for the diarrhea 04/19/2020 patient is on azithromycin and Rocephin 04/20/2020 Rocephin stopped around midnight, continue with Azithromycin. 04/21/2020 continue with azithromycin, possible accepting facility for tomorrow 04/22/2020 Pt IV Azithromycin was stopped since her IV infiltrated and is now on PO Levaquin <CHRIS Crook - Last Filed: 04/22/20 10:38> (2) COVID-19: Code(s): U07.1 - COVID-19 <CHRIS Crook - Last Filed: 04/22/20 10:38> Status: Acute <Keegan AmandaCHRIS Hernandez - Last Filed: 04/22/20 10:38> Assessment and Plan: Tested + 04/14/2020 Developed symptoms 04/14/2020 Continue remdesivir and dexamethasone 04/27/2020 quarantine complete 04/19/2020 continue albuterol, Symbicort, Decadron, today is last dose of Remdesivir, supplemental oxygen as needed to maintain SpO2 92% or better, monitor for any deterioration 04/20/2020 isolation continuing to 04/24/2020, continue azithromycin last dose will be 04/20 continue with Decadron last dose will be 04/2504/21/2020 isolation and date 04/25/2020, continue with Decadron, patient remains on room air, no respiratory distress, talks in complete sentences, no increased work of breathing no shortness of breath 04/22/2020 Pt states her breathing is better today and that in general she feels better <Keegan IvanCHRIS lopez - Last Filed: 04/22/20 10:38> (3) Asthma: Code(s): J45.909 - Unspecified asthma, uncomplicated <Keegan AbarcaCHRIS - Last Filed: 04/22/20 10:38> Status: Acute <Keegan AbarcaELENAEddBen - Last Filed: 04/22/20 10:38> Assessment and Plan: Continue nebulizers and inhaler Give supplementary oxygen as needed 04/19/2020 supplemental oxygen as needed, continue albuterol and Symbicort 04/20/2020 continue with current regimen 04/21/2020 no changes at this time 04/22/2020 continue without changes <Keegan IvanELENA lopezEddBen - Last Filed: 04/22/20 10:38> (4) HTN (hypertension): Code(s): I10 - Essential (primary) hypertension <Keegan IvanCHRIS lopez - Last Filed: 04/22/20 10:38> Status: Acute <Keegan AbarcaELENAEddBen - Last Filed: 04/22/20 10:38> Assessment and Plan: Blood pressures stable Continue metoprolol 25 mg daily Will monitor and adjust as needed Vital signs as ordered 04/19/2020 blood pressure was little elevated overnight now 130s over 70s, continue home medication, monitor vital signs 04/20/2020 blood pressure this morning 140/75, no changes at this time 04/21/2020 vital signs stable blood pressure stable heart rate stable 60s to 70s afebrile 04/22/2020 vital signs remain stable <Keegan IvanCHRIS lopez - Last Filed: 04/22/20 10:38> (5) Diabetes mellitus: Code(s): E11.9 - Type 2 diabetes mellitus without complications <Keegan IvanCHRIS lopez - Last Filed: 04/22/20 10:38> Status: Acute <Keegan IvanELENA lopezEddBen - Last Filed: 04/22/20 10:38> Assessment and Plan: Blood sugar stable Will continue Lantus 25 units at bedtime with sliding scale, Accu-Cheks and hypoglycemic protocol 04/19/2020 glucose has been between 150 and 290, patient is taking Decadron, continue Accu-Cheks and hypoglycemic interventions as needed, no change to insulin at this time 04/20/2020 glucose in the 300s x2 yesterday evening during the day
[2020-04-22 12:03] LABS: Glucose Point of Care 265 (65-105)
--- NOTE | 2020-04-22 16:09 | PCPTNOTE ---
pt refused treatment x 2 in pm due to pain and increased fatigue. JF 04/20/20
[2020-04-22 16:45] VITALS: BP 113/65; PULSE 60; RESP 18; TEMP 36.1; O2SAT 97
[2020-04-22 17:16] LABS: Glucose Point of Care 288 (65-105)
--- NOTE | 2020-04-22 20:04 | PM.EVENT ---
Event Note Event Note Event Note: I have examined the patient and reviewed the chart. I discussed the patient's care with Amanda Abarca and agree with his assessment plan.
[2020-04-22] MEDS: rOPINIRole HCL 0.5 MG TABLET 0.25 MG PO (21:37)
[2020-04-22] MEDS: traZODone HCL 50 MG TABLET 150 MG PO (21:37)
[2020-04-22] MEDS: DULoxetine HCL 30 MG CAPSULE.DR 60 MG PO (21:37)
[2020-04-22] MEDS: INSULIN GLARGINE (*BKC) 100 UNITS/ML 25 UNITS SUB-Q (21:40)
[2020-04-22 22:39] LABS: Glucose Point of Care 246 (65-105)
[2020-04-22 23:45] VITALS: BP 128/72; PULSE 72; RESP 18; TEMP 36.1; O2SAT 96
[2020-04-23 08:00] VITALS: BP 141/69; PULSE 74; RESP 18; TEMP 36.6; O2SAT 92
[2020-04-23 08:18] LABS: Glucose Point of Care 163 (65-105)
--- NOTE | 2020-04-23 08:23 | WPDPN ---
Progress Note: A&P Assessment and Plan (1) Community acquired pneumonia: Qualifiers: Laterality: unspecified laterality Qualified Code(s): J18.9 - Pneumonia, unspecified organism Code(s): J18.9 - Pneumonia, unspecified organism Status: Acute Assessment and Plan: 04/19/2020 patient is on azithromycin and Rocephin 04/20/2020 Rocephin stopped around midnight, continue with Azithromycin. 04/21/2020 continue with azithromycin, possible accepting facility for tomorrow 04/22/2020 Pt IV Azithromycin was stopped since her IV infiltrated and is now on PO Levaquin 04/23/2020 continue Levaquin until 04/25/2020 for her last dose (2) COVID-19: Code(s): U07.1 - COVID-19 Status: Acute Assessment and Plan: 04/19/2020 continue albuterol, Symbicort, Decadron, today is last dose of Remdesivir, supplemental oxygen as needed to maintain SpO2 92% or better, monitor for any deterioration 04/20/2020 isolation continuing to 04/24/2020, continue azithromycin last dose will be 04/20 continue with Decadron last dose will be 04/2504/21/2020 isolation end date 04/25/2020, continue with Decadron, patient remains on room air, no respiratory distress, talks in complete sentences, no increased work of breathing no shortness of breath 04/22/2020 Pt states her breathing is better today and that in general she feels better 04/23/2020 patient will be out of isolation 04/25/2020, continue with room air as patient does not have increased oxygen requirements, no cough, no chills no fevers, continues with no shortness of breath nor increased work of breathing with activity, continue Decadron last dose on 04/25/2020 (3) Asthma: Code(s): J45.909 - Unspecified asthma, uncomplicated Status: Acute Assessment and Plan: 04/19/2020 supplemental oxygen as needed, continue albuterol and Symbicort 04/20/2020 continue with current regimen 04/21/2020 no changes at this time 04/22/2020 continue without changes 04/23/2020 continue with current regimen no changes required (4) HTN (hypertension): Code(s): I10 - Essential (primary) hypertension Status: Acute Assessment and Plan: 04/19/2020 blood pressure was little elevated overnight now 130s over 70s, continue home medication, monitor vital signs 04/20/2020 blood pressure this morning 140/75, no changes at this time 04/21/2020 vital signs stable blood pressure stable heart rate stable 60s to 70s afebrile 04/22/2020 vital signs remain stable 04/23/2020 vital signs remained stable no changes needed (5) Diabetes mellitus: Code(s): E11.9 - Type 2 diabetes mellitus without complications Status: Acute Assessment and Plan: Blood sugar stable Will continue Lantus 25 units at bedtime with sliding scale, Accu-Cheks and hypoglycemic protocol 04/19/2020 glucose has been between 150 and 290, patient is taking Decadron, continue Accu-Cheks and hypoglycemic interventions as needed, no change to insulin at this time 04/20/2020 glucose in the 300s x2 yesterday evening during the day 160-180 04/21/2020 instructed nursing staff to pass along to evening and night staff not to give additional snacks in order to control glucose better 04/22/2020 Glucose is a bit elevated, taking Decadron, calls dietary throughout the day for extra snacks and drinks, discussed the need to reduce Caloric intake. 04/23/2020 continue to educate patient on proper diabetic diet (6) Bipolar 1 disorder: Code(s): F31.9 - Bipolar disorder, unspecified Status: Acute Assessment and Plan: Continue home medication, Cymbalta, hydroxyzine, vilazodone 04/19/2020 continue with home medications 04/20/2020 no changes at this time 04/21/2020 no changes at this time with medication, possible placement tomorrow 04/22/2020 no changes made to medications, placement was denied 04/23/2020 no changes needed at this time (7) Nausea vomiting and diarrhea: Code(s): R11.2 - Na
[2020-04-23] MEDS: LIDOCAINE 5% PATCH 1 PATCH TRANSDERM (09:37)
[2020-04-23] MEDS: BUDESONIDE/FORMOTEROL (*SP) 160-4.5 MCG 6 GM INH 1 PUFF INHALATION ×2 (09:37→16:28)
[2020-04-23] MEDS: FLUTICASONE PROPIONATE 0.05% NA SPR 16 GM BTL (*BKC) 1 SPRAY NASAL ×2 (09:37→21:24)
[2020-04-23] MEDS: SACCHAROMYCES BOULARDII 250 MG CAPSULE PO ×2 (09:38→16:34)
[2020-04-23] MEDS: hydrOXYzine HCL 25 MG TABLET 50 MG PO ×2 (09:38→16:27)
[2020-04-23] MEDS: polyethylene glycoL 3350 17 GM POWD.PACK PO (09:38)
[2020-04-23] MEDS: PANTOPRAZOLE 40 MG TABLET PO (09:38)
[2020-04-23] MEDS: FAMOTIDINE 20 MG TABLET 40 MG PO (09:38)
[2020-04-23] MEDS: ENOXAPARIN 40 MG/0.4 ML SYRINGE SUB-Q (09:38)
[2020-04-23] MEDS: MONTELUKAST SODIUM 10 MG TABLET PO (09:38)
[2020-04-23 09:39] VITALS: PULSE 74
[2020-04-23] MEDS: CLOPIDOGREL BISULFATE 75 MG TABLET PO (09:39)
[2020-04-23] MEDS: CHOLECALCIFEROL 1,000 UNITS TABLET 1000 UNITS PO (09:39)
[2020-04-23] MEDS: METOPROLOL TARTRATE 25 MG TABLET PO (09:39)
[2020-04-23] MEDS: DEXAMETHASONE 2 MG TABLET 6 MG PO (09:39)
[2020-04-23] MEDS: CALCIUM CARBONATE (OSCAL) 500 MG TABLET PO (09:39)
[2020-04-23] MEDS: EZETIMIBE 10 MG TABLET PO (09:40)
[2020-04-23] MEDS: LORATADINE 10 MG TABLET PO (09:40)
[2020-04-23] MEDS: DULoxetine HCL 20 MG CAPSULE.DR PO ×2 (09:40→16:28)
[2020-04-23] MEDS: DOCUSATE SODIUM 100 MG CAPSULE PO ×2 (09:40→16:28)
[2020-04-23] MEDS: GABAPENTIN 300 MG CAPSULE 900 MG PO ×3 (09:45→21:22)
[2020-04-23] MEDS: clonazePAM (*CRX) 0.5 MG TABLET 0.25 MG PO ×3 (09:52→21:24)
[2020-04-23 11:42] LABS: Glucose Point of Care 254 (65-105)
[2020-04-23 16:00] VITALS: BP 132/76; PULSE 62; RESP 18; TEMP 35.9; O2SAT 93
[2020-04-23 16:34] LABS: Glucose Point of Care 353 (65-105)
[2020-04-23] MEDS: rOPINIRole HCL 0.5 MG TABLET 0.25 MG PO (21:23)
[2020-04-23] MEDS: traMADol HCL (*CRX) 50 MG TABLET PO (21:23)
[2020-04-23] MEDS: traZODone HCL 50 MG TABLET 150 MG PO (21:24)
[2020-04-23] MEDS: DULoxetine HCL 30 MG CAPSULE.DR 60 MG PO (21:24)
[2020-04-23] MEDS: INSULIN GLARGINE (*BKC) 100 UNITS/ML 25 UNITS SUB-Q (21:26)
[2020-04-23 21:30] VITALS: BP 146/84; PULSE 65; RESP 18; TEMP 36.6; O2SAT 95
[2020-04-23 21:59] LABS: Glucose Point of Care 380 (65-105)
[2020-04-24] VITALS: BP 140/72; PULSE 78; RESP 18; TEMP 36; O2SAT 96
--- NOTE | 2020-04-24 01:03 | PC.NURSE ---
Up to void, no distress noted,
--- NOTE | 2020-04-24 02:34 | PC.NURSE ---
Resting quietly, no needs voiced
[2020-04-24 05:22] LABS: Hematocrit 40.7 % (35.0-49.0); Hemoglobin 13.4 g/dL (12.0-15.0); Mean Corpuscular HGB Conc 32.9 g/dL (32.0-36.0); Mean Corpuscular Volume 94.2 fL (78.0-102.0); Mean Platelet Volume 8.7 fl (9.2-11.8); Platelet Count Result 318 K/mm3 (150-420); Red Blood Count 4.32 M/mm3 (4.20-5.40); Red Cell Distribution Width 12.8 % (11.6-14.4); White Blood Count 10.4 K/mm3 (4.8-10.8)
[2020-04-24 05:34] LABS: Anion Gap 9 mmol/L (8-16); Blood Urea Nitrogen 21 mg/dL (7-18); Calcium 9.1 mg/dL (8.5-10.1); Carbon Dioxide 29 mmol/L (21-32); Chloride 100 mmol/L (98-108); Estimated CRCL calculation 85 ml/min; Estimated Glomerular Filt Rate > 60; Glucose 247 mg/dL (70-99); Osmolality Calculated 297 mOsm/kg (285-295); Potassium 4.1 mmol/L (3.5-5.1); Sodium 138 mmol/L (136-145)
[2020-04-24 08:00] VITALS: BP 123/87; PULSE 72; RESP 18; TEMP 36.7; O2SAT 97
[2020-04-24 08:15] LABS: Glucose Point of Care 196 (65-105)
--- NOTE | 2020-04-24 08:26 | PM.IMPN ---
Progress Note: A&P Assessment and Plan (1) Community acquired pneumonia: Qualifiers: Laterality: unspecified laterality Qualified Code(s): J18.9 - Pneumonia, unspecified organism Code(s): J18.9 - Pneumonia, unspecified organism Status: Acute Assessment and Plan: 04/19/2020 patient is on azithromycin and Rocephin 04/20/2020 Rocephin stopped around midnight, continue with Azithromycin. 04/21/2020 continue with azithromycin, possible accepting facility for tomorrow 04/22/2020 Pt IV Azithromycin was stopped since her IV infiltrated and is now on PO Levaquin 04/23/2020 continue Levaquin until 04/25/2020 for her last dose 04/24/2020 continue Levaquin last dose will be tomorrow 04/25/2020 (2) COVID-19: Code(s): U07.1 - COVID-19 Status: Acute Assessment and Plan: 04/19/2020 continue albuterol, Symbicort, Decadron, today is last dose of Remdesivir, supplemental oxygen as needed to maintain SpO2 92% or better, monitor for any deterioration 04/20/2020 isolation continuing to 04/24/2020, continue azithromycin last dose will be 04/20 continue with Decadron last dose will be 04/2504/21/2020 isolation end date 04/25/2020, continue with Decadron, patient remains on room air, no respiratory distress, talks in complete sentences, no increased work of breathing no shortness of breath 04/22/2020 Pt states her breathing is better today and that in general she feels better 04/23/2020 patient will be out of isolation 04/25/2020, continue with room air as patient does not have increased oxygen requirements, no cough, no chills no fevers, continues with no shortness of breath nor increased work of breathing with activity, continue Decadron last dose on 04/25/2020 04/24/2020 patient continues to improve patient refused her Decadron (3) Asthma: Code(s): J45.909 - Unspecified asthma, uncomplicated Status: Acute Assessment and Plan: 04/19/2020 supplemental oxygen as needed, continue albuterol and Symbicort 04/20/2020 continue with current regimen 04/21/2020 no changes at this time 04/22/2020 continue without changes 04/23/2020 continue with current regimen no changes required 04/24/2020 continue with current regiment (4) HTN (hypertension): Code(s): I10 - Essential (primary) hypertension Status: Acute Assessment and Plan: 04/19/2020 blood pressure was little elevated overnight now 130s over 70s, continue home medication, monitor vital signs 04/20/2020 blood pressure this morning 140/75, no changes at this time 04/21/2020 vital signs stable blood pressure stable heart rate stable 60s to 70s afebrile 04/22/2020 vital signs remain stable 04/23/2020 vital signs remained stable no changes needed 04/24/2020 vital signs remained stable continue to monitor (5) Diabetes mellitus: Code(s): E11.9 - Type 2 diabetes mellitus without complications Status: Acute Assessment and Plan: Blood sugar stable Will continue Lantus 25 units at bedtime with sliding scale, Accu-Cheks and hypoglycemic protocol 04/19/2020 glucose has been between 150 and 290, patient is taking Decadron, continue Accu-Cheks and hypoglycemic interventions as needed, no change to insulin at this time 04/20/2020 glucose in the 300s x2 yesterday evening during the day 160-180 04/21/2020 instructed nursing staff to pass along to evening and night staff not to give additional snacks in order to control glucose better 04/22/2020 Glucose is a bit elevated, taking Decadron, calls dietary throughout the day for extra snacks and drinks, discussed the need to reduce Caloric intake. 04/23/2020 continue to educate patient on proper diabetic diet 04/24/2020 patient continues to snack throughout the day, staff was instructed not to give patient to many snacks throughout the day (6) Bipolar 1 disorder: Code(s): F31.9 - Bipolar disorder, unspecified Status: Acute Assessment and Plan: Continue home
[2020-04-24] MEDS: CHOLECALCIFEROL 1,000 UNITS TABLET 1000 UNITS PO (09:06)
[2020-04-24] MEDS: SACCHAROMYCES BOULARDII 250 MG CAPSULE PO ×2 (09:06→16:32)
[2020-04-24] MEDS: FLUTICASONE PROPIONATE 0.05% NA SPR 16 GM BTL (*BKC) 1 SPRAY NASAL ×2 (09:06→21:27)
[2020-04-24] MEDS: polyethylene glycoL 3350 17 GM POWD.PACK PO (09:06)
[2020-04-24] MEDS: ENOXAPARIN 40 MG/0.4 ML SYRINGE SUB-Q (09:06)
[2020-04-24] MEDS: LIDOCAINE 5% PATCH 1 PATCH TRANSDERM (09:06)
[2020-04-24] MEDS: hydrOXYzine HCL 25 MG TABLET 50 MG PO ×2 (09:06→16:31)
[2020-04-24] MEDS: BUDESONIDE/FORMOTEROL (*SP) 160-4.5 MCG 6 GM INH 1 PUFF INHALATION ×2 (09:06→16:32)
[2020-04-24] MEDS: FAMOTIDINE 20 MG TABLET 40 MG PO (09:07)
[2020-04-24] MEDS: CALCIUM CARBONATE (OSCAL) 500 MG TABLET PO (09:07)
[2020-04-24] MEDS: PANTOPRAZOLE 40 MG TABLET PO (09:07)
[2020-04-24] MEDS: clonazePAM (*CRX) 0.5 MG TABLET 0.25 MG PO ×3 (09:07→21:25)
[2020-04-24] MEDS: CLOPIDOGREL BISULFATE 75 MG TABLET PO (09:07)
[2020-04-24] MEDS: DULoxetine HCL 20 MG CAPSULE.DR PO ×2 (09:07→16:31)
[2020-04-24] MEDS: LORATADINE 10 MG TABLET PO (09:07)
[2020-04-24] MEDS: MONTELUKAST SODIUM 10 MG TABLET PO (09:07)
[2020-04-24] MEDS: EZETIMIBE 10 MG TABLET PO (09:07)
[2020-04-24 09:08] VITALS: PULSE 72
[2020-04-24] MEDS: METOPROLOL TARTRATE 25 MG TABLET PO (09:08)
[2020-04-24] MEDS: DOCUSATE SODIUM 100 MG CAPSULE PO ×2 (09:08→16:32)
[2020-04-24] MEDS: GABAPENTIN 300 MG CAPSULE 900 MG PO ×3 (09:10→21:26)
[2020-04-24 12:04] LABS: Glucose Point of Care 295 (65-105)
[2020-04-24 16:00] VITALS: BP 148/83; PULSE 72; RESP 18; TEMP 35.6; O2SAT 94
[2020-04-24 16:41] LABS: Glucose Point of Care 271 (65-105)
[2020-04-24] MEDS: DULoxetine HCL 30 MG CAPSULE.DR 60 MG PO (21:24)
[2020-04-24] MEDS: rOPINIRole HCL 0.5 MG TABLET 0.25 MG PO (21:25)
[2020-04-24] MEDS: traZODone HCL 50 MG TABLET 150 MG PO (21:26)
[2020-04-24] MEDS: INSULIN GLARGINE (*BKC) 100 UNITS/ML 25 UNITS SUB-Q (21:27)
[2020-04-24 21:40] LABS: Glucose Point of Care 333 (65-105)
[2020-04-25] VITALS: BP 133/60; PULSE 60; RESP 14; TEMP 36.4; O2SAT 98
[2020-04-25 06:30] LABS: Hematocrit 40.6 % (35.0-49.0); Hemoglobin 13.2 g/dL (12.0-15.0); Mean Corpuscular HGB Conc 32.5 g/dL (32.0-36.0); Mean Corpuscular Volume 95.3 fL (78.0-102.0); Mean Platelet Volume 8.6 fl (9.2-11.8); Platelet Count Result 284 K/mm3 (150-420); Red Blood Count 4.26 M/mm3 (4.20-5.40)
[2020-04-25 06:41] LABS: Anion Gap 9 mmol/L (8-16); Blood Urea Nitrogen 24 mg/dL (7-18); Calcium 9.4 mg/dL (8.5-10.1); Carbon Dioxide 29 mmol/L (21-32); Chloride 104 mmol/L (98-108); Estimated CRCL calculation 89 ml/min; Estimated Glomerular Filt Rate > 60; Glucose 147 mg/dL (70-99); Osmolality Calculated 301 mOsm/kg (285-295); Sodium 142 mmol/L (136-145)
[2020-04-25 07:30] VITALS: BP 115/71; PULSE 90; RESP 16; TEMP 35.8; O2SAT 97
[2020-04-25 07:34] LABS: Glucose Point of Care 121 (65-105)
[2020-04-25] MEDS: FAMOTIDINE 20 MG TABLET 40 MG PO (08:09)
[2020-04-25] MEDS: DOCUSATE SODIUM 100 MG CAPSULE PO (08:10)
[2020-04-25] MEDS: MONTELUKAST SODIUM 10 MG TABLET PO (08:10)
[2020-04-25] MEDS: CHOLECALCIFEROL 1,000 UNITS TABLET 1000 UNITS PO (08:10)
[2020-04-25 08:11] VITALS: PULSE 66
[2020-04-25] MEDS: PANTOPRAZOLE 40 MG TABLET PO (08:11)
[2020-04-25] MEDS: CALCIUM CARBONATE (OSCAL) 500 MG TABLET PO (08:11)
[2020-04-25] MEDS: METOPROLOL TARTRATE 25 MG TABLET PO (08:11)
[2020-04-25] MEDS: EZETIMIBE 10 MG TABLET PO (08:11)
[2020-04-25] MEDS: CLOPIDOGREL BISULFATE 75 MG TABLET PO (08:12)
[2020-04-25] MEDS: DULoxetine HCL 20 MG CAPSULE.DR PO (08:12)
[2020-04-25] MEDS: hydrOXYzine HCL 25 MG TABLET 50 MG PO (08:12)
[2020-04-25] MEDS: LORATADINE 10 MG TABLET PO (08:12)
[2020-04-25] MEDS: ENOXAPARIN 40 MG/0.4 ML SYRINGE SUB-Q (08:13)
[2020-04-25] MEDS: polyethylene glycoL 3350 17 GM POWD.PACK PO (08:14)
[2020-04-25] MEDS: SACCHAROMYCES BOULARDII 250 MG CAPSULE PO (08:15)
[2020-04-25] MEDS: LIDOCAINE 5% PATCH 1 PATCH TRANSDERM (08:16)
[2020-04-25] MEDS: BUDESONIDE/FORMOTEROL (*SP) 160-4.5 MCG 6 GM INH 1 PUFF INHALATION (08:35)
[2020-04-25] MEDS: FLUTICASONE PROPIONATE 0.05% NA SPR 16 GM BTL (*BKC) 1 SPRAY NASAL (08:35)
[2020-04-25] MEDS: clonazePAM (*CRX) 0.5 MG TABLET 0.25 MG PO ×2 (08:45→14:15)
[2020-04-25] MEDS: GABAPENTIN 300 MG CAPSULE 900 MG PO ×2 (08:46→14:16)
--- NOTE | 2020-04-25 09:02 | PM.DS ---
DS: Admitting Diagnosis Admitting Diagnosis Admitting Diagnosis: pneumonia covid 19 <CHRIS Crook - Last Filed: 04/25/20 11:05> DS: Discharge Diagnosis Discharge Diagnosis (1) Community acquired pneumonia: Qualifiers: Laterality: unspecified laterality Qualified Code(s): J18.9 - Pneumonia, unspecified organism <CHRIS Crook - Last Filed: 04/25/20 11:05> Code(s): J18.9 - Pneumonia, unspecified organism <CHRIS Crook - Last Filed: 04/25/20 11:05> Status: Acute <CHRIS Crook - Last Filed: 04/25/20 11:05> Assessment and Plan: 04/19/2020 patient is on azithromycin and Rocephin 04/20/2020 Rocephin stopped around midnight, continue with Azithromycin. 04/21/2020 continue with azithromycin, possible accepting facility for tomorrow 04/22/2020 Pt IV Azithromycin was stopped since her IV infiltrated and is now on PO Levaquin 04/23/2020 continue Levaquin until 04/25/2020 for her last dose 04/24/2020 continue Levaquin last dose will be tomorrow 04/25/2020 04/25/2020 lungs are clear in all hdez, patient takes her last dose Levaquin today <CHRIS Crook - Last Filed: 04/25/20 11:05> (2) COVID-19: Code(s): U07.1 - COVID-19 <CHRIS Crook - Last Filed: 04/25/20 11:05> Status: Acute <CHRIS Crook - Last Filed: 04/25/20 11:05> Assessment and Plan: 04/19/2020 continue albuterol, Symbicort, Decadron, today is last dose of Remdesivir, supplemental oxygen as needed to maintain SpO2 92% or better, monitor for any deterioration 04/20/2020 isolation continuing to 04/24/2020, continue azithromycin last dose will be 04/20 continue with Decadron last dose will be 04/2504/21/2020 isolation end date 04/25/2020, continue with Decadron, patient remains on room air, no respiratory distress, talks in complete sentences, no increased work of breathing no shortness of breath 04/22/2020 Pt states her breathing is better today and that in general she feels better 04/23/2020 patient will be out of isolation 04/25/2020, continue with room air as patient does not have increased oxygen requirements, no cough, no chills no fevers, continues with no shortness of breath nor increased work of breathing with activity, continue Decadron last dose on 04/25/2020 04/24/2020 patient continues to improve patient refused her Decadron 04/25/2020 patient is off of isolation today and will be discharged this afternoon <CHRIS Crook - Last Filed: 04/25/20 11:05> (3) Asthma: Code(s): J45.909 - Unspecified asthma, uncomplicated <CHRIS Crook - Last Filed: 04/25/20 11:05> Status: Acute <CHRIS Crook - Last Filed: 04/25/20 11:05> Assessment and Plan: 04/19/2020 supplemental oxygen as needed, continue albuterol and Symbicort 04/20/2020 continue with current regimen 04/21/2020 no changes at this time 04/22/2020 continue without changes 04/23/2020 continue with current regimen no changes required 04/24/2020 continue with current regiment 04/25/2020 patient has not had any issues discharge on current home medications <CHRIS Crook - Last Filed: 04/25/20 11:05> (4) HTN (hypertension): Code(s): I10 - Essential (primary) hypertension <CHRIS Crook - Last Filed: 04/25/20 11:05> Status: Acute <CHRIS Crook - Last Filed: 04/25/20 11:05> Assessment and Plan: 04/19/2020 blood pressure was little elevated overnight now 130s over 70s, continue home medication, monitor vital signs 04/20/2020 blood pressure this morning 140/75, no changes at this time 04/21/2020 vital signs stable blood pressure stable heart rate stable 60s to 70s afebrile 04/22/2020 vital signs remain stable 04/23/2020 vital signs remained stable no changes needed 04/24/2020 vital signs remained stable continue to monitor 04/25/2020 no connelly
[2020-04-25 11:31] LABS: Glucose Point of Care 242 (65-105)
[2020-04-25] MEDS: MECLIZINE HCL 25 MG TABLET PO (15:07)
--- NOTE | 2020-04-27 11:17 | PCDIET ---
long term nurse states they received the discharge instructions and there were no issues.
== END 2020-04-25 15:25 | DRG 177 ==
LOC: CHSED 20:56 → CHS2ND 21:39
PROVIDERS: Nurse Practitioner; Nurse Practitioner Family; Admitting Provider Emergency Medicine; Emergency Provider Emergency Medicine; Visit Provider Emergency Medicine
DX: U07.1 COVID-19 (principal); J12.89 Other viral pneumonia; J45.909 Unspecified asthma, uncomplicated; I10 Essential (primary) hypertension; E11.9 Type 2 diabetes mellitus without complications; F43.10 Post-traumatic stress disorder, unspecified; F31.9 Bipolar disorder, unspecified; D72.819 Decreased white blood cell count, unspecified; R11.2 Nausea with vomiting, unspecified; R19.7 Diarrhea, unspecified; Z87.891 Personal history of nicotine dependence
CPT/HCPCS: 36415; 36600; 71045; 80048; 80053; 81003; 82805; 83605; 83735; 83880; 84460; 84484; 85025; 85027; 85380; 85610; 85730; 86140; 87040; 87426; 87804; 93005; 94640; 96361; 96365; 97110; 97161; 97165; 97530; 97535; 99285; A9270; J0456; J0696; J1100; J1650; J1815; J2405; J3480; J7030; J7050; J7060; J8540

== ENCOUNTER 2020-06-20 11:20 | Outpatient (NON) | payer MEDICARE, SELFPAY ==
[2020-06-20 11:36] LABS: Basophils Absolute Auto 0.05 K/mm3 (0.00-0.10); Basophils Percent Auto 0.7 % (0.0-1.0); Eosinophils Absolute Auto 0.26 K/mm3 (0.02-0.50); Eosinophils Percent Auto 3.5 % (1.0-6.0); Hematocrit 43.5 % (35.0-49.0); Hemoglobin 14.5 g/dL (12.0-15.0); Immature Granulocyte Absolute 0.05 K/mm3 (0.00-0.00); Immature Granulocyte Percent A 0.7 % (0.0-0.0); Immature Platelet Fraction Pct 2.5 % (1.0-7.0); Lymphocytes Absolute Auto 1.55 K/mm3 (1.10-4.50); Lymphocytes Percent Auto 20.6 % (18.0-42.0); Mean Corpuscular HGB Conc 33.3 g/dL (32.0-36.0); Mean Corpuscular Volume 92.9 fL (78.0-102.0); Mean Platelet Volume 10.2 fl (9.2-11.8); Monocytes Absolute Auto 0.61 K/mm3 (0.10-0.90); Monocytes Percent Auto 8.1 % (2.0-11.0); Neutrophils Percent Auto 66.4 % (50.0-70.0); Red Blood Count 4.68 M/mm3 (4.20-5.40); Red Cell Distribution Width 12.7 % (11.6-14.4); White Blood Count 7.5 K/mm3 (4.8-10.8)
[2020-06-20 12:02] LABS: Alanine Aminotransferase 27 U/L (14-59); Albumin Level 3.5 g/dL (3.4-5.0); Alkaline Phosphatase 91 U/L (46-116); Anion Gap 9 mmol/L (8-16); Aspartate Amino Transferase 13 U/L (15-37); Bilirubin,Total 0.2 mg/dL (0.00-1.00); Blood Urea Nitrogen 16 mg/dL (7-18); Calcium 9.4 mg/dL (8.5-10.1); Carbon Dioxide 29 mmol/L (21-32); Chloride 101 mmol/L (98-108); Estimated Glomerular Filt Rate > 60; Glucose 282 mg/dL (70-99); Osmolality Calculated 299 mOsm/kg (285-295); Potassium 3.9 mmol/L (3.5-5.1); Sodium 139 mmol/L (136-145); Total Protein 7.4 g/dL (6.4-8.2); Troponin I 9.7 ng/L (0.00-60.4)
[2020-06-20 12:14] LABS: Platelet Count Result 247 K/mm3 (150-420)
== END 2020-06-20 11:21 ==
PROVIDERS: Visit Provider Internal Medicine
DX: R53.1 Weakness (principal); R00.0 Tachycardia, unspecified
CPT/HCPCS: 36415; 80053; 84484; 85025; 85055

== ENCOUNTER 2020-07-24 17:20 | Emergency (ER) | payer MEDICARE, MEDICAID, SELFPAY ==
--- NOTE | ~2020-07-24 | XR_ITS ---
XR hip LT 2V w AP pelvis 07/24/2020 18:03 Indication: Left hip pain Procedure: 3 views left hip including AP pelvis Comparison: 09/04/2017 Findings: There are vertebroplasty changes at L5. Pelvic rings are intact. No acute fracture, subluxa tion or dislocation. Sacral foramen with are symmetric. Impression: 1: No acute fracture. Reviewed, dictated and finalized at location A. Impression: 1: No acute fracture.
--- NOTE | ~2020-07-24 | CT_ITS ---
EXAMINATION: CT brain wo con DATE: 07/24/2020 17:56 INDICATION: Status post fall. Trauma to the face. Headache. TECHNIQUE: Computed tomography (CT) of the head was performed without intravenous contrast. The dose- length product was 605.33 mGy-cm. The mA was adjusted according to patient size. Iterative reconstruc tion technique was employed. COMPARISON: None FINDINGS: No acute intracranial hemorrhage, infarction, mass or mass effect. Prominent perivascular s pace right basal ganglia. There are scattered mild periventricular and subcortical white matter connelly es, most likely related to small vessel ischemic disease (microangiopathy). No ventriculomegaly or mi dline shift. Basilar cisterns are patent. No acute intracranial hemorrhage, infarction, mass or mass effect. IMPRESSION: 1. No acute intracranial abnormality. Reviewed, dictated and finalized at location A.
--- NOTE | ~2020-07-24 | CT_ITS ---
EXAMINATION: CT facial & cervical spine wo DATE: 07/24/2020 17:57 INDICATION: Status post fall. Trauma to the face. TECHNIQUE: Computed tomography (CT) of the maxillofacial region and cervical spine was performed with out intravenous contrast. The dose-length product was 441.09 mGy-cm. Automated exposure control and i terative reconstruction technique were employed. COMPARISON: None FINDINGS: MAXILLOFACIAL CT: No acute facial fracture. Nasal bones, orbits, mandible, zygomatic arches and pterygoid plates are in tact. No significant soft tissue abnormality. Orbits are intact. CERVICAL SPINE CT: Normal alignment. Vertebral body heights are maintained. Odontoid process within normal limits. No ev idence for perched facet. Mild chronic superior endplate compression deformity of T1. There is caroti d atherosclerosis. Visualized lung apices are unremarkable. Mild multilevel uncinate and facet degene rative change. IMPRESSION: 1. No acute abnormality of the facial bones or cervical spine. Reviewed, dictated and finalized at location A.
[2020-07-24 17:21] VITALS: BP 163/79; PULSE 75; RESP 20; TEMP 36.4; O2SAT 96
--- NOTE | 2020-07-24 17:34 | ED.FALL ---
HPI - Fall General Chief Complaint: Fall Stated Complaint: fall History of Present Illness HPI Narrative: 59 yo female w/ h/o COPD, DM, HTN, CAD, chronic pain presents to the ED after a fall. She reportedly fell face first out of bed onto a table. She struck her nose and upper lip on the table. She then felt her head snap back. She had some bleeding of the mouth and nose, which has resolved. She also has pain in the left hip/buttock. She is on plavix. Related Data Home Medications Medication Instructions Recorded Confirmed Acidophilus 2 tablet PO BID 04/14/20 04/14/20 Lantus Solostar U-100 Insulin 25 unit SUBCUT HS 04/14/20 04/14/20 Viibryd 40 mg PO DAILY 04/14/20 04/14/20 albuterol sulfate [Ventolin HFA] 1 - 2 puff INHALATION QID 04/14/20 04/14/20 azelastine 1 - 2 spray INTRANASAL BID 04/14/20 04/14/20 bisacodyl 10 mg UT DAILY PRN 04/14/20 04/14/20 budesonide-formoterol 1 puff INHALATION BID 04/14/20 04/14/20 calcium carbonate [Calcium 600] 600 mg PO DAILY 04/14/20 04/14/20 cetirizine 10 mg PO DAILY 04/14/20 04/14/20 cholecalciferol (vitamin D3) 25 mcg PO DAILY 04/14/20 04/14/20 [Vitamin D3] clonazepam 0.5 mg PO TID PRN 04/14/20 04/14/20 clopidogrel 75 mg PO DAILY 04/14/20 04/14/20 docusate calcium 100 mg PO BID 04/14/20 04/14/20 duloxetine 20 mg PO BID 04/14/20 04/14/20 duloxetine 60 mg PO HS 04/14/20 04/14/20 esomeprazole magnesium 40 mg PO DAILY 04/14/20 04/14/20 ezetimibe 10 mg PO DAILY 04/14/20 04/14/20 famotidine 40 mg PO DAILY 04/14/20 04/14/20 gabapentin 300 mg PO TID 04/14/20 04/14/20 hydroxyzine HCl 50 mg PO BID 04/14/20 04/14/20 insulin lispro [Humalog KwikPen 9 unit SUBCUT AC 04/14/20 04/14/20 Insulin] lidocaine [Aspercreme (lidocaine 1 patch TOPICAL DAILY PRN 04/14/20 04/14/20 HCl)] metoprolol tartrate 25 mg PO DAILY 04/14/20 04/14/20 mometasone 1 spray INTRANASAL DAILY 04/14/20 04/14/20 montelukast 10 mg PO DAILY 04/14/20 04/14/20 ondansetron HCl 4 mg PO TID PRN 04/14/20 04/14/20 polyethylene glycol 3350 [Miralax] 17 g PO DAILY 04/14/20 04/14/20 ropinirole 0.25 mg PO HS 04/14/20 04/14/20 sumatriptan succinate 50 mg PO ONCE PRN 04/14/20 04/14/20 tramadol 50 mg PO TID PRN 04/14/20 04/14/20 trazodone 150 mg PO HS PRN 04/14/20 04/14/20 Allergies Allergy/AdvReac Type Severity Reaction Status Date / Time doxycycline Allergy Intermediate Nausea Verified 07/24/20 17:28 clindamycin Allergy Mild Nausea Verified 07/24/20 17:28 amitriptyline Allergy Unknown Verified 07/24/20 17:28 pregabalin Allergy Unknown Verified 07/24/20 17:28 amoxicillin [From Augmentin] AdvReac Nausea Verified 07/24/20 17:28 clavulanic acid AdvReac Nausea Verified 07/24/20 17:28 [From Augmentin] metformin AdvReac Unknown Verified 07/24/20 17:28 Review of Systems Review of Systems: All systems reviewed & are unremarkable except as noted in HPI and below Constitutional: Constitutional: Denies chills and Denies fever(s) Eyes: Eyes: Reports no additional eye complaints ENT: Denies dizziness Cardiovascular: Cardiovascular: Denies chest pain Respiratory: Respiratory: Denies dyspnea Gastrointestinal: Gastrointestinal: Reports no additional gastrointestinal complaints Genitourinary: Genitourinary: Reports no additional female genitourinary complaints Musculoskeletal: Musculoskeletal: Reports back pain and Reports arthralgias Neurologic: Denies confusion and Denies weakness Psychiatric: Psychiatric: Reports anxiety PMFSH Past Medical History Medical History Asthma Diabetes mellitus HTN (hypertension) Social History Social History Smoking status: Former smoker Smoking end date: 05/13/10 Alcohol intake: never Substance use: never Gender identity (if verbalized by the patient): Female Spiritual care concerns: No Exam Const: General: no acute distress and alert Orientation/consciousness: p
[2020-07-24] MEDS: MORPHINE SULFATE (*CRX) 2 MG/ML INJ IV PUSH (18:04)
[2020-07-24 18:34] VITALS: BP 188/79; PULSE 71; RESP 20; O2SAT 95
[2020-07-24 19:01] VITALS: BP 161/90; PULSE 71; RESP 20; O2SAT 95
[2020-07-24] MEDS: traMADol HCL (*CRX) 50 MG TABLET PO (19:07)
[2020-07-24 19:08] VITALS: BP 161/90; PULSE 70; RESP 20; O2SAT 98
--- NOTE | 2020-07-24 19:15 | PC.NURSE ---
report called to Cynthia Cash at [facility]
--- NOTE | 2020-07-24 19:41 | PC.NURSE ---
[facility] callled AT 1914 and update ETA to 2099 Called [facility] at 1918 to request transport. Accepted. Cancelled [facility] at 1939
--- NOTE | 2020-07-24 19:52 | PC.NURSE ---
[facility] here.
[2020-07-24 20:01] VITALS: BP 159/88; PULSE 69; RESP 16; O2SAT 96
== END 2020-07-24 20:05 ==
PROVIDERS: Emergency Provider Emergency Medicine; PCP Internal Medicine
DX: S00.531A Contusion of lip, initial encounter (principal); M54.2 Cervicalgia; J44.9 Chronic obstructive pulmonary disease, unspecified; I10 Essential (primary) hypertension; E11.9 Type 2 diabetes mellitus without complications; I25.10 Atherosclerotic heart disease of native coronary artery without angina pectoris; Z79.02 Long term (current) use of antithrombotics/antiplatelets; Z79.4 Long term (current) use of insulin; Z87.891 Personal history of nicotine dependence; W06.XXXA Fall from bed, initial encounter
CPT/HCPCS: 70450; 70486; 72125; 73502; 96374; 99284; A9270; J2270; L0140

== ENCOUNTER 2020-10-26 14:07 | Outpatient (CLI) | payer MEDICARE, MEDICAID, SELFPAY ==
--- NOTE | ~2020-10-26 | DEXA_ITS ---
Bone Density Report Name: Alivia Lombardi Age: 60 Sex: Female Ethnicity: White Date of : 1960 Indication: postmenopausal; height loss; prior fracture; cancer; asthma or emphysema; hysterectomy; Referring Provider: Randall, Aaron Torres Study: Bone densitometry was performed. Exam Date: October 26, 2020 Accession number: [id number] Bone Density: Region BMD T-score Z-score Classification AP Spine (L1, L3, L4) 1.036 -0.2 1.4 Normal Femoral Neck (Left) 0.601 -2.2 -0.9 Osteopenia Total Hip (Left) 0.782 -1.3 -0.3 Osteopenia Total Hip Bilateral Avg 0.767 -1.5 -0.4 Osteopenia Femoral Neck (Right) 0.605 -2.2 -0.9 Osteopenia Total Hip (Right) 0.752 -1.6 -0.5 Osteopenia World Health Organization criteria for BMD impression classify patients as: Normal (T-score at or above -1.0), Osteopenia (T-score between -1.0 and -2.5), or Osteoporosis (T-score at or below -2.5). 10-year Fracture Risk: FRAX not reported because: Prior hip or vertebral fracture Clinical Information Provided by Patient: Have had a previous hip or vertebral fracture Has had a low trauma fracture Smokes Has used the following medications: Calcium Has the following medical conditions: Asthma or Emphysema, Cancer, Hysterectomy Patient maximum height was 70 Menopause Age: 31 No regular weight bearing exercise Drinks caffeinated beverages Onset of menses at age 9 Number of children 3 Impression: The patient has low bone mass, based on the Left Femoral Neck T-score. The patient has risk factors, including: smoking, previous fracture. Discussion: INCREASED RISK OF FRACTURE DUE TO HISTORY OF FRACTURE. The patient's previous fracture puts the patient at high risk of a future fracture. In untreated patients, the risk of osteoporotic fracture increases approximately two-fold for each 1.0 SD decrease in T-score. Low bone density is not the only risk factor for fracture; also consider factors such as patient's age, frailty or poor health, risk of falling, risk of injury, previous osteoporotic fracture, family history of osteoporosis, cigarette smoking, low body weight, etc. Not everyone with a low trauma fracture has osteoporosis; osteomalacia and other metabolic bone disorders should also be considered. Patients who have osteoporosis should be evaluated for specific diseases and conditions (secondary causes) that may cause or contribute to bone loss and fracture risk. National Osteoporosis Foundation (NOF) recommends pharmacologic intervention for patients with a prior hip or vertebral fracture regardless of BMD T-score. The patient should follow a healthful lifestyle (good nutrition with adequate calcium and vitamin D, and appropriate weight-bearing exercise). Follow-Up: Consider a repeat BMD and Vertebral Fracture Assessment (VFA) exam in 2 years or sooner if medically
== END 2020-10-26 14:08 | disposition home or self-care (01) ==
PROVIDERS: PCP Internal Medicine; Visit Provider Internal Medicine
DX: M81.0 Age-related osteoporosis without current pathological fracture (principal); S32.050A Wedge compression fracture of fifth lumbar vertebra, initial encounter for closed fracture; M85.851 Other specified disorders of bone density and structure, right thigh; M85.852 Other specified disorders of bone density and structure, left thigh
CPT/HCPCS: 77080